=== PATIENT | female | born 1950 | race Caucasian/White ===

== ENCOUNTER 2017-04-28 15:50 | Inpatient (IN) | payer MEDICARE, MEDICAID ==
[2017-04-28] MEDS ORDERED: Sodium Chloride 0.9% 10 ML Syringe FLUSH PRN (16:10)
[2017-04-28] MEDS ORDERED: Sodium Chloride 0.9% 1,000 ML IV ONE (16:10)
--- NOTE | 2017-04-28 16:13 | EDM.PDOC ---
ED HPI GENERAL MEDICAL PROBLEM - General Chief Complaint: Neurological Problem Stated Complaint: [facility] Time Seen by Provider: 04/28/17 16:17 Source of Information: Reports: Patient History Limitations: Reports: No Limitations - History of Present Illness INITIAL COMMENTS - FREE TEXT/NARRATIVE: 67-year-old female presents via [facility] for evaluation and treatment of weakness, dizziness, nausea and headaches. Patient reports that her symptoms started around 9:30 this morning. Reports at that time she was just relaxing watching TV. She reports that the dizziness is present only with movement when. When she lays still she does not experience any dizziness. She also reports some left numbness and tingling into her arm. Patient denies any chest pain, shortness breath, syncope, fevers, chills or a cough. 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 This was resected in 2013. Patient smokes a pack of cigarettes a day. Lives at home in an apartment by herself. All over Pain Score (Numeric/FACES): 5 - Related Data Allergies Allergy/AdvReac Type Severity Reaction Status Date / Time No Known Allergies Allergy Verified 04/28/17 16:03 Home Meds: Home Meds . [No Known Home Meds] 04/28/17 [History] Past Medical History Oncologic (Cancer) History: Reports: Squamous Cell Carcinoma - Past Surgical History HEENT Surgical History: Reports: Other (See Below) Other HEENT Surgeries/Procedures: mouth surgery Musculoskeletal Surgical History: Reports: Other (See Below) Social & Family History - Family History Family Medical History: Noncontributory - Tobacco Use Smoking Status *Q: Current Every Day Smoker Years of Tobacco use: 50 Packs/Tins Daily: 1 Used Tobacco, but Quit: No Second Hand Smoke Exposure: Yes - Caffeine Use Caffeine Use: Reports: Coffee - Alcohol Use Days Per Week of Alcohol Use: 1 Number of Drinks Per Day: 1 Total Drinks Per Week: 1 - Recreational Drug Use Recreational Drug Use: No ED ROS GENERAL - Review of Systems Review Of Systems: See Below Constitutional: Reports: Weakness (generalized). Denies: Fever HEENT: Denies: Ear Pain Respiratory: Denies: Shortness of Breath Cardiovascular: Denies: Chest Pain GI/Abdominal: Reports: Nausea. Denies: Abdominal Pain, Vomiting Neurological: Reports: Confusion, Dizziness (with movement), Headache, Numbness (left arm), Weakness (generalized). Denies: Syncope, Trouble Speaking, Change in Speech ED EXAM, NEURO - Physical Exam Exam: See Below Exam Limited By: No Limitations General Appearance: Alert, WD/WN, No Apparent Distress Eye Exam: Bilateral Eye: EOMI, PERRL Ears: Normal External Exam, Normal Canal, Hearing Grossly Normal, Normal TMs Nose: Normal Inspection Throat/Mouth: No Airway Compromise, Other (mandibular ressection from oral caner ) Respiratory/Chest: No Respiratory Distress, Lungs Clear, Normal Breath Sounds Cardiovascular: Normal Peripheral Pulses, Regular Rate, Rhythm, No Murmur GI/Abdominal: Soft, Non-Tender Neurological: Alert, Normal Mood/Affect, Normal Dorsiflexion, CN II-XII Intact, Normal Plantar Flexion, Other (normal heel to zuniga testing, call out operator 5/5 bilaterall , dorsiflexion 5/5 bilaterally, plantar flexion 5/5 bilaterally ; no facial droop, no speech changes). No: Babinski Psychiatric: Normal Affect, Normal Mood Skin Exam: Warm, Dry, Normal Color EKG INTERPRETATION EKG Date: 04/28/17 Time: 16:00 Rhythm: NSR Rate (Beats/Min): 81 [place]: Normal P-Wave: Present QRS: Normal ST-T: Normal QT: Normal Course - Vital Signs Last Recorded V/S: Last Vital Signs Temp 36.7 C 04/29/17 10:32 Pulse 72 04/29/17 10:32 Resp 19 04/29/17 10:32 BP 170/70 H 04/29/17 10:32 Pulse Ox 92 L 04/29/17 10:32 Orthostatic Blood Pressure [ 196/90 Sitting] Orthostatic Blood Pressure [ 156/85 Supine] - Orders/Labs/Meds Orders: Active Orders 24 hr Category Date Time Status Orthostatic Vital Signs [RC] ASDIRECTED Care 04/28/17 16:11 Active Sodium Chloride 0.9% [Saline Flush] Med 04/28/17 16:10 Active 10 ml FLUSH ASDIRECTED PRN Peripheral IV Insertion Adult [OM.PC] Routine Oth 04/28/17 16:10 Ordered Medication Orders Acetaminophen (Tylenol) 650 mg PO Q4H PRN PRN Reason: Pain (Mild 1-3)/fever Hydrocodone Bitart/Acetaminophen ([place] 325-5 Mg) 1 tab PO Q4H PRN PRN Reason: Pain (moderate 4-6) Albuterol/Ipratropium (Duoneb 3.0-0.5 Mg/3 Ml) 3 ml NEB Q4H PRN PRN Reason: Shortness Of Breath/wheezing Last Admin: 04/29/17 08:35 Dose: 3 ml Bisacodyl (Dulcolax) 5 mg PO DAILY PRN PRN Reason: Constipation Docusate Sodium (Colace) 100 mg PO BID PRN PRN Reason: Constipation Hydralazine HCl (Apresoline) 20 mg IVPUSH Q4H PRN PRN Reason: Hypertension Last Admin: 04/29/17 10:49 Dose: 20 mg Promethazine HCl 12.5 mg/ (Sodium Chloride) 50.5 mls @ 100 mls/hr IV Q6H PRN PRN Reason: Nausea/Vomiting Lorazepam (Ativan) 0.5 mg IV Q6H PRN PRN Reason: Anxiety Magnesium Sulfate (Pharmacy To Dose - Magnesium Replacement) 1 dose .XX ASDIRECTED [facility] Meclizine HCl (Antivert) 25 mg PO Q6H PRN PRN Reason: Dizziness Metoprolol Tartrate (Lopressor) 5 mg IVPUSH Q4H PRN PRN Reason: Tachycardia Miscellaneous Information (Remove Patch) 1 ea TRDERM ONETIME ONE Stop: 05/01/17 21:01 Miscellaneous Information (Remove Patch) 0 ea TRDERM DAILY [facility] Morphine Sulfate (Morphine) 1 mg IVPUSH Q4H PRN PRN Reason: Other Stop: 04/29/17 23:18 Nicotine (Habitrol) 21 mg TRDERM DAILY [facility] Ondansetron HCl (Zofran) 4 mg IV Q6H PRN PRN Reason: Nausea/Vomiting Polyethylene Glycol (Miralax) 17 gm PO DAILY PRN PRN Reason: Constipation Potassium Chloride (Pharmacy To Dose - Potassium Replacement) 1 dose .XX ASDIRECTED [facility] Senna/Docusate Sodium (Senna Plus) 1 tab PO BID PRN PRN Reason: Constipation Sodium Chloride (Saline Flush) 10 ml FLUSH ASDIRECTED PRN PRN Reason: Keep Vein Open Last Admin: 04/28/17 16:34 Dose: 10 ml Temazepam (Restoril) 7.5 mg PO BEDTIME PRN PRN Reason: Sleep Labs: Laboratory Tests 04/28/17 04/28/17 04/28/17 Range/Units 15:55 15:55 15:55 WBC 4.91 (3.98-10.04) K/mm3 RBC 4.62 (3.98-5.22) M/mm3 Hgb 13.1 (11.2-15.7) gm/L Hct 41.0 (34.1-44.9) % MCV 88.7 (79.4-94.8) fl MCH 28.4 (25.6-32.2) pg MCHC 32.0 L (32.2-35.5) g/dl RDW Std Deviation 46.9 H (36.4-46.3) fL Plt Count 232 (182-369) K/mm3 MPV 10.2 (9.4-12.3) fl Neutrophils % (Manual) 66 H (40-60) % Band Neutrophils % 0 (0-10) % Lymphocytes % (Manual) 24 (20-40) % Atypical Lymphs % 1 % Monocytes % (Manual) 6 (2-10) % Eosinophils % (Manual) 1 (0.7-5.8) % Basophils % (Manual) 2 H (0.1-1.2) Platelet Estimate Adequate Plt Morphology Comment Normal Poikilocytosis 1+ slight Anisocytosis 1+ slight Microcytosis 1+ slight Macrocytosis 1+ slight Tear Drop Cells 1+ slight Ovalocytes 1+ slight RBC Morph Comment Abnormal PT 10.0 (8.0-13.0) SECONDS INR 0.92 APTT 29 (22-36) SECONDS Sodium 138 (136-145) mEq/L Potassium 4.0 (3.5-5.1) mEq/L Chloride 103 (98-107) mEq/L Carbon Dioxide 30 (21-32) mEq/L Anion Gap 9.0 (5-15) BUN 17 (7-18) mg/dL Creatinine 1.1 H (0.55-1.02) mg/dL Est Cr Clr Drug Dosing 38.48 mL/min Estimated GFR (MDRD) 50 (>60) mL/min BUN/Creatinine Ratio 15.5 (14-18) Glucose 106 (80-115) mg/dL Calcium 9.3 (8.5-10.1) mg/dL Magnesium 1.7 L (1.8-2.4) mg/dl Total Bilirubin 0.3 (0.2-1.0) mg/dL AST 19 (15-37) U/L ALT 16 (14-59) U/L Alkaline Phosphatase 82 (46-116) U/L Troponin I < 0.017 (0.00-0.056) ng/mL Total Protein 7.2 (6.4-8.2) g/dl Albumin 3.6 (3.4-5.0) g/dl Globulin 3.6 gm/dL Albumin/Globulin Ratio 1.0 (1-2) TSH 3rd Generation 3.329 (0.358-3.74) uIU/mL Urine Color (Yellow) Urine Appearance (Clear) Urine pH (5.0-8.0) Ur Specific [place] (1.005-1.030) Urine Protein (Negative) Urine Glucose (UA) (Negative) Urine Ketones (Negative) Urine Occult Blood (Negative) Urine Nitrite (Negative) Urine Bilirubin (Negative) Urine Urobilinogen (0.2-1.0) Ur Leukocyte Esterase (Negative) Urine RBC (0-5) /hpf Urine WBC (0-5) /hpf Ur Epithelial Cells (0-5) /hpf Urine Bacteria (FEW) /hpf Hyaline Casts (0-5) /lpf Urine Mucus (FEW) /hpf Urine Opiates Screen (NEGATIVE) Ur Buprenorphine Scrn (NEGATIVE) Ur Oxycodone Screen (NEGATIVE) Urine Methadone Screen (NEGATIVE) Ur Propoxyphene Screen (NEGATIVE) Ur Barbiturates Screen (NEGATIVE) Ur Tricyclics Screen (NEGATIVE) Ur Phencyclidine Scrn (NEGATIVE) Ur Amphetamine Screen (NEGATIVE) U Methamphetamines Scrn (NEGATIVE) U Benzodiazepines Scrn (NEGATIVE) U Cocaine Metab Screen (NEGATIVE) U Marijuana (THC) Screen (NEGATIVE) Ethyl Alcohol (0.00) gm% 04/28/17 04/28/17 04/28/17 Range/Units 15:55 18:30 18:30 WBC (3.98-10.04) K/mm3 RBC (3.98-5.22) M/mm3 Hgb (11.2-15.7) gm/L Hct (34.1-44.9) % MCV (79.4-94.8) fl MCH (25.6-32.2) pg MCHC (32.2-35.5) g/dl RDW Std Deviation (36.4-46.3) fL Plt Count (182-369) K/mm3 MPV (9.4-12.3) fl Neutrophils % (Manual) (40-60) % Band Neutrophils % (0-10) % Lymphocytes % (Manual) (20-40) % Atypical Lymphs % % Monocytes % (Manual) (2-10) % Eosinophils % (Manual) (0.7-5.8) % Basophils % (Manual) (0.1-1.2) Platelet Estimate Plt Morphology Comment Poikilocytosis Anisocytosis Microcytosis Macrocytosis Tear Drop Cells Ovalocytes RBC Morph Comment PT (8.0-13.0) SECONDS INR APTT (22-36) SECONDS Sodium (136-145) mEq/L Potassium (3.5-5.1) mEq/L Chloride (98-107) mEq/L Carbon Dioxide (21-32) mEq/L Anion Gap (5-15) BUN (7-18) mg/dL Creatinine (0.55-1.02) mg/dL Est Cr Clr Drug Dosing mL/min Estimated GFR (MDRD) (>60) mL/min BUN/Creatinine Ratio (14-18) Glucose (80-115) mg/dL Calcium (8.5-10.1) mg/dL Magnesium (1.8-2.4) mg/dl Total Bilirubin (0.2-1.0) mg/dL AST (15-37) U/L ALT (14-59) U/L Alkaline Phosphatase (46-116) U/L Troponin I (0.00-0.056) ng/mL Total Protein (6.4-8.2) g/dl Albumin (3.4-5.0) g/dl Globulin gm/dL Albumin/Globulin Ratio (1-2) TSH 3rd Generation (0.358-3.74) uIU/mL Urine Color Yellow (Yellow) Urine Appearance Clear (Clear) Urine pH 6.5 (5.0-8.0) Ur Specific [place] 1.020 (1.005-1.030) Urine Protein Negative (Negative) Urine Glucose (UA) Negative (Negative) Urine Ketones Negative (Negative) Urine Occult Blood Trace-lysed H (Negative) Urine Nitrite Negative (Negative) Urine Bilirubin Negative (Negative) Urine Urobilinogen 0.2 (0.2-1.0) Ur Leukocyte Esterase Negative (Negative) Urine RBC 0-5 (0-5) /hpf Urine WBC 0-5 (0-5) /hpf Ur Epithelial Cells 5-10 H (0-5) /hpf Urine Bacteria Moderate H (FEW) /hpf Hyaline Casts 0-5 (0-5) /lpf Urine Mucus Not seen (FEW) /hpf Urine Opiates Screen Negative (NEGATIVE) Ur Buprenorphine Scrn Negative (NEGATIVE) Ur Oxycodone Screen Negative (NEGATIVE) Urine Methadone Screen Negative (NEGATIVE) Ur Propoxyphene Screen Negative (NEGATIVE) Ur Barbiturates Screen Negative (NEGATIVE) Ur Tricyclics Screen Negative (NEGATIVE) Ur Phencyclidine Scrn Negative (NEGATIVE) Ur Amphetamine Screen Negative (NEGATIVE) U Methamphetamines Scrn Negative (NEGATIVE) U Benzodiazepines Scrn Negative (NEGATIVE) U Cocaine Metab Screen Negative (NEGATIVE) U Marijuana (THC) Screen Negative (NEGATIVE) Ethyl Alcohol 0.00 (0.00) gm% Meds: Medications Generic Name Dose Route Start Last Admin Trade Name Freq PRN Reason Stop Dose Admin Acetaminophen 650 mg 04/28/17 23:17 Tylenol PO Q4H PRN Pain (Mild 1-3)/fever Hydrocodone Bitart/Acetaminophen 1 tab 04/28/17 23:17 [place] 325-5 Mg PO Q4H PRN Pain (moderate 4-6) Albuterol/Ipratropium 3 ml 04/28/17 23:17 04/29/17 08:35 Duoneb 3.0-0.5 Mg/3 Ml NEB 3 ml Q4H PRN Administration Shortness Of Breath/wheezing Bisacodyl 5 mg 04/28/17 23:17 Dulcolax PO DAILY PRN Constipation Docusate Sodium 100 mg 04/28/17 23:17 Colace PO BID PRN Constipation Hydralazine HCl 20 mg 04/28/17 23:29 04/29/17 10:49 Apresoline IVPUSH 20 mg Q4H PRN Administration Hypertension Promethazine HCl 12.5 mg/ 50.5 mls @ 100 mls/hr 04/28/17 23:17 Sodium Chloride IV Q6H PRN Nausea/Vomiting Lorazepam 0.5 mg 04/28/17 23:17 Ativan IV Q6H PRN Anxiety Magnesium Sulfate 1 dose 04/28/17 23:30 Pharmacy To Dose - Magnesium Replacement .XX ASDIRECTED [facility] Meclizine HCl 25 mg 04/28/17 23:30 Antivert PO Q6H PRN Dizziness Metoprolol Tartrate 5 mg 04/28/17 23:29 Lopressor IVPUSH Q4H PRN Tachycardia Miscellaneous Information 1 ea 05/01/17 21:00 Remove Patch TRDERM 05/01/17 21:01 ONETIME ONE Miscellaneous Information 0 ea 04/30/17 09:00 Remove Patch TRDERM DAILY [facility] Morphine Sulfate 1 mg 04/28/17 23:17 Morphine IVPUSH 04/29/17 23:18 Q4H PRN Other Nicotine 21 mg 04/29/17 11:15 Habitrol TRDERM DAILY [facility] Ondansetron HCl 4 mg 04/28/17 23:17 Zofran IV Q6H PRN Nausea/Vomiting Polyethylene Glycol 17 gm 04/28/17 23:17 Miralax PO DAILY PRN Constipation Potassium Chloride 1 dose 04/28/17 23:30 Pharmacy To Dose - Potassium Replacement .XX ASDIRECTED [facility] Senna/Docusate Sodium 1 tab 04/28/17 23:17 Senna Plus PO BID PRN Constipation Sodium Chloride 10 ml 04/28/17 16:10 04/28/17 16:34 Saline Flush FLUSH 10 ml ASDIRECTED PRN Administration Keep Vein Open Temazepam 7.5 mg 04/28/17 23:17 Restoril PO BEDTIME PRN Sleep Discontinued Medications Generic Name Dose Route Start Last Admin Trade Name Freq PRN Reason Stop Dose Admin Clonidine HCl 0.1 mg 04/28/17 21:51 04/28/17 22:21 Catapres PO 04/28/17 21:52 0.1 mg ONETIME ONE Administration Diphenhydramine HCl 50 mg 04/28/17 22:08 04/29/17 00:10 Benadryl IVPUSH 04/28/17 22:09 Not Given ONETIME ONE Diphtheria/Tetanus/Acell Pertussis 0.5 ml 04/29/17 09:49 Adacel IM 04/29/17 09:50 .ONCE ONE Enalaprilat 1.25 mg 04/28/17 20:07 04/28/17 20:16 Vasotec Iv IVPUSH 04/28/17 20:08 1.25 mg ONETIME ONE Administration Sodium Chloride 1,000 mls @ 100 mls/hr 04/28/17 16:10 04/28/17 16:31 Normal Saline IV 04/29/17 02:09 100 mls/hr ONETIME ONE Administration Magnesium Sulfate 2 gm/ Premix 50 mls @ 25 mls/hr 04/28/17 23:29 04/29/17 00: 02 IV 04/29/17 01:28 25 mls/hr ONETIME ONE Administration Ketorolac Tromethamine 15 mg 04/28/17 18:06 04/28/17 18:21 Toradol IVPUSH 04/28/17 18:07 15 mg ONETIME ONE Administration Meclizine HCl 25 mg 04/28/17 18:06 04/28/17 18:24 Antivert PO 04/28/17 18:07 25 mg ONETIME ONE Administration Nicotine 21 mg 04/28/17 19:55 04/28/17 20:14 Habitrol TRDERM 04/28/17 19:56 21 mg ONETIME ONE Administration Ondansetron HCl 4 mg 04/28/17 18:06 04/28/17 18:17 Zofran IVPUSH 04/28/17 18:07 4 mg ONETIME ONE Administration Scopolamine 1.5 mg 04/28/17 21:00 04/28/17 22:21 Transderm-Scop TOP 04/28/17 21:01 1.5 mg ONETIME ONE Administration - Radiology Interpretation Free Text/Narrative:: CT of the head without contrast impression per Vrad: No evidence for acute transcortical infarct, acute hemorrhage or mass effect. chest xray shows no acute intrathroacic process. - Re-Assessments/Exams Free Text/Narrative Re-Assessment/Exam: 04/28/17 18:36 I reviewed the labs, EKG, chest x-ray and head CT results with the patient and her sister Chasity. At this point I feel her dizziness and complaints are likely vestibular in origin. The dizziness is worse with movement. Weakness is generalized. Will try some meclizine, Toradol and Zofran for her dizziness, headache and nausea. We will then reevaluate and see how she feels and if she is safe to go home. 04/28/17 20:00 Patient reports that her headache has resolved. The nausea has significantly improved. The dizziness has also improved. I feel that she could go home. Her sister is very concerned about her going home as she lives at home by herself. I had nursing staff walk with the patient's around the ER. She is able to do this with a walker and with their assistance. However, when she got back to the room her legs gave out due to weakness. The patient's blood pressure while in the ER has been in the 160s to 170s systolic, on the monitor. I see that it is increasing into the 180s and she's had several 200 systolic blood pressure. She is rather anxious about staying in requested outside to smoke. I will get her a nicotine patch. I asked that they perform a manual blood pressure and her systolic was 178. Case was discussed with Dr. Echols. Recommended Vasotec IV for the blood pressure. He does not feel this is a CVA and felt this was vestibular in origin. Patient agrees to stay in the hospital for the weakness and dizziness. Case discussed with Dr. Goodwin. He agrees to the admission. Chasity, sister, is available at [phone]. Departure - Departure Time of Disposition: 20:30 Disposition: Admitted As Inpatient 68 Condition: Poor Clinical Impression: Weakness, Dizziness - Discharge Information - My Orders Last 24 Hours: My Active Orders 04/28/17 16:10 Sodium Chloride 0.9% [Saline Flush] 10 ml FLUSH ASDIRECTED PRN Peripheral IV Insertion Adult [OM.PC] Routine 04/28/17 16:11 Orthostatic Vital Signs [RC] ASDIRECTED - Assessment/Plan Last 24 Hours: My Active Orders 04/28/17 16:10 Sodium Chloride 0.9% [Saline Flush] 10 ml FLUSH ASDIRECTED PRN Peripheral IV Insertion Adult [OM.PC] Routine 04/28/17 16:11 Orthostatic Vital Signs [RC] ASDIRECTED
[2017-04-28] MEDS ORDERED: Ketorolac 15 MG/ML SDV IVPUSH ONE (18:06)
[2017-04-28] MEDS ORDERED: Meclizine 12.5 MG Tab PO ONE (18:06)
[2017-04-28] MEDS ORDERED: Ondansetron 4 MG/2 ML SDV IVPUSH ONE (18:06)
[2017-04-28] MEDS ORDERED: Nicotine 21 MG/24 Hr Patch TRDERM ONE (19:55)
[2017-04-28] MEDS ORDERED: Enalaprilat 1.25 MG/ML SDV IVPUSH ONE (20:07)
[2017-04-28] MEDS ORDERED: Scopolamine 1.5 MG Transdermal Patch TOP ONE (21:00)
[2017-04-28] MEDS ORDERED: Pneumococcal Polyvalent-23 Vaccine 0.5 ML SDV IM ONE (21:06)
--- NOTE | 2017-04-28 21:31 | PCM.HP ---
H&P History of Present Illness - General Date of Service: 04/28/17 Admit Problem/Dx: Admission Diagnosis/Problem Admission Diagnosis/Problem Vertigo Source of Information: Patient, Old Records, Provider, RN Notes Reviewed History Limitations: Reports: No Limitations - History of Present Illness Initial Comments - Free Text/Narative: This is a 67 year old elderly white female who looks older than her stated age with no significant past medical history who comes to the emergency department for evaluation of multiple complaints: Weakness, dizziness, nausea and headache. Per patient all her symptoms started early this morning while she was at rest. She denies doing anything out of the ordinary. She denies using illicit drugs or abusing prescription drugs. She denies alcohol use. She describes her dizziness as false sense of equilibrium. She reports no sense of room spinning. Her dizziness is aggravated by abrupt movement and associated with some left numbness and tingling of her arm. She denies any other symptoms. 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 She is still an active smoker and smoked one pack a day. Her initial workup in the emergency department shows an unremarkable CBC. Her chemistry is remarkable for magnesium 1.7. Her UA is negative for UTI. Chest x-ray shows hyperinflated lungs. Head CT scan shows no acute intra- cranial abnormality. Patient is being admitted for medical management of disequilibrium. She is full code. . All over Pain Score (Numeric/FACES): 5 - Related Data Allergies/Adverse Reactions: Allergies Allergy/AdvReac Type Severity Reaction Status Date / Time No Known Allergies Allergy Verified 04/28/17 16:03 Home Medications: Home Meds . [No Known Home Meds] 04/28/17 [History] Past Medical History HEENT History: Reports: None Cardiovascular History: Reports: None Respiratory History: Reports: COPD Gastrointestinal History: Reports: None Genitourinary History: Reports: None Musculoskeletal History: Reports: None Neurological History: Reports: Vertigo Psychiatric History: Reports: None Endocrine/Metabolic History: Reports: None Hematologic History: Reports: Blood Transfusion(s) Immunologic History: Reports: None Oncologic (Cancer) History: Reports: Squamous Cell Carcinoma Dermatologic History: Reports: None - Infectious Disease History Infectious Disease History: Reports: None - Past Surgical History HEENT Surgical History: Reports: Other (See Below) Other HEENT Surgeries/Procedures: mouth surgery Respiratory Surgical History: Reports: None Endocrine Surgical History: Reports: None Neurological Surgical History: Reports: None Oncologic Surgical History: Reports: Other (See Below) Other Oncologic Surgeries/Procedures: mouth surgery Dermatological Surgical History: Reports: Plastic Surgical Reconstruction/Repair , Other (See Below) Social & Family History - Family History Family Medical History: Noncontributory - Tobacco Use Smoking Status *Q: Current Every Day Smoker Years of Tobacco use: 30 Packs/Tins Daily: 1 Used Tobacco, but Quit: No Second Hand Smoke Exposure: Yes - Caffeine Use Caffeine Use: Reports: Coffee - Alcohol Use Days Per Week of Alcohol Use: 1 Number of Drinks Per Day: 1 Total Drinks Per Week: 1 - Recreational Drug Use Recreational Drug Use: No H&P Review of Systems - Review of Systems: Review Of Systems: See Below General: Denies: Fever, Chills, Malaise, Weakness, Fatigue HEENT: Reports: No Symptoms Pulmonary: Denies: Shortness of Breath Cardiovascular: Reports: Lightheadedness. Denies: Chest Pain, Palpitations, Dyspnea on Exertion Gastrointestinal: Reports: Nausea. Denies: Abdominal Pain, Decreased Appetite, Vomiting Genitourinary: Reports: No Symptoms Musculoskeletal: Reports: No Symptoms Skin: Reports: Change in Color. Denies: Cyanosis, Jaundice Psychiatric: Denies: Confusion, Depression, Mood Lability, Anxiety, Suicidal Ideation Neurological: Denies: Confusion, Difficulty Walking, Weakness, Gait Disturbance Hematologic/Lymphatic: Reports: No Symptoms Immunologic: Reports: No Symptoms Exam - Exam Exam: See Below - Vital Signs Vital Signs: Last Vital Signs Temp 36.6 C 04/28/17 20:40 Pulse 80 04/28/17 20:40 Resp 14 04/28/17 20:40 BP 177/103 H 04/28/17 20:40 Pulse Ox 95 04/28/17 20:40 Weight: 50.712 kg - Exam Quality Assessment: No: Supplemental Oxygen General: Alert, Oriented, Cooperative. No: Mild Distress HEENT: Conjunctiva Clear, EACs Clear, Hearing Intact, Mucosa Moist & [place], Normal Nasal Septum, Posterior Pharynx Clear, Pupils Reactive, TMs Clear, Other (w/o dentition or artifical teeth). No: EOMI (unable to follow my finger going to her left: left sided neglect), Pupils Equal Neck: Supple, Other (Asymmetric neck and evidence of surgical resection; missing lower jaw ). No: Trachea Midline, Full Range of Motion, Lymphadenopathy Lungs: Normal Respiratory Effort, Decreased Breath Sounds Cardiovascular: Regular Rate, Regular Rhythm GI/Abdominal Exam: Normal Bowel Sounds, Soft, Non-Tender, No Organomegaly, No Distention, No Abnormal Bruit, No Mass (Female) Exam: Deferred Rectal (Female) Exam: Deferred Back Exam: Normal Inspection, Decreased Range of Motion Extremities: Normal Inspection, Normal Range of Motion, Non-Tender, No Pedal Edema, Normal Capillary Refill Peripheral Pulses: 2+: Posterior Tibial (L), Posterior Tibial (R), Dorsalis Pedis (L), Dorsalis Pedis (R) Skin: Warm, Dry, Intact Neuro Extensive - Mental Status: Oriented x3, Normal Cognition, Memory Intact Neuro Extensive - Motor, Sensory, Reflexes: CN II-XII Intact (limited but fairly intact), Abnormal Gait, Other (left sided neglect), Motor/Sensory Deficits (mild weakness on left arm). No: Receptive Aphasia, Expressive Aphasia , Facial palsy (L), Facial Palsy (R), Pronator Drift (R), Pronator Drift (L), Babinski, Tremor Psychiatric: Alert, Normal Mood. No: Normal Affect, Anxious, Suicidal Ideation , Homicidal Ideation, Hallucinations, Withdrawal Symptoms - Patient Data Result Diagrams: 04/29/17 06:30 04/29/17 06:30 EKG INTERPRETATION EKG Date: 04/28/17 Time: 16:00 Rhythm: NSR Rate (Beats/Min): 81 [place]: Normal P-Wave: Present QRS: Normal ST-T: Normal QT: Normal *Q Meaningful Use (ADM) - VTE *Q VTE Criteria *Q: - Stroke *Q Stroke Criteria *Q: - AMI *Q AMI Criteria *Q: Problem List Initiated/Reviewed/Updated: Yes Orders Last 24hrs: Active Orders 24 hr Category Date Time Status Admission Status [Patient Status] [ADT] Routine ADT 04/28/17 20:30 Active Resuscitation Status Routine Resus Stat 04/28/17 21:18 Ordered Medication Orders Sodium Chloride (Normal Saline) 1,000 mls @ 100 mls/hr IV ONETIME ONE Stop: 04/29/17 02:09 Last Admin: 04/28/17 16:31 Dose: 100 mls/hr Sodium Chloride (Saline Flush) 10 ml FLUSH ASDIRECTED PRN PRN Reason: Keep Vein Open Last Admin: 04/28/17 16:34 Dose: 10 ml Assessment/Plan Comment:: Assessment/Plan: Acute: Dizziness - No associated nasal/throat or hearing complaints - More of dys-equilibrium - No room spinning - Dizziness resolved as soon as she got to the floor - No slurred speech or facial droop - Head CT scan: Nothing acute is identified - R/o Stroke: No MRI/MRA services at night - She is still nauseous - She smokes but does not drink ETOH - She denies illicit drug use or Rx drug abuse - Scopolamine patch x1 and Benadryl 50 mg IVP x1 - PRN Meclizine Weakness, Nausea and CASTILLO - Possible Stroke Like Symptoms-symptoms started this morning - Nausea and CASTILLO resolved when she got to the floor - Head CT scan: nothing acute is identified - No vomiting or CASTILLO - Brain MRI and Head/Neck MRA in AM Nicotine Abuse/Dependence - Smokes 1 ppd - Nicotine Patch daily Malignant HTN - Stress vs Nicotine Withdrawal - She carries no hx/o HTN - She had SBPs in the 200s per ED notes - She received initial treatment in ED - PRN anti-hypertensive meds Malnutrition/Poor Nutritional State - Emaciated and not well kept - Poor intake due to anatomic and structural changes after her oral/neck surgery - She is w/o dentition or artificial teeth - Dietary consult to improve nutritional status Hypomagnesemia - Mg 1.7 - Will replete - Pharmacy to replete and monitor subsequent levels Chronic: Probable COPD/Emphysema- No formal diagnosis Plan: Admit to Med-Surg Dizziness: a very weak admission since all her work up were negative Resume Home Meds if she is on any UDS Further work up in AM and monitor for worsening symptoms PT/OT consult for deconditioning PFT inpatient for formal diagnosis of COPD SW consult for to assess home and social aspect of her living condition CM for d/c planning Additional orders as above Code status: 1
[2017-04-28] MEDS ORDERED: cloNIDine 0.1 MG Tab PO ONE (21:51)
[2017-04-28] MEDS ORDERED: diphenhydrAMINE 50 MG/ML SDV IVPUSH ONE (22:08)
[2017-04-28] MEDS ORDERED: Promethazine 12.5 MG in Sodium Chloride 0.9% 50 ML IV PRN (23:17)
[2017-04-28] MEDS ORDERED: Docusate Sodium 100 MG Cap PO PRN (23:17)
[2017-04-28] MEDS ORDERED: Albuterol/Ipratropium 3.0-0.5 MG/3 ML Neb Soln NEB PRN (23:17)
[2017-04-28] MEDS ORDERED: Acetaminophen 325 MG Tab PO PRN (23:17)
[2017-04-28] MEDS ORDERED: Acetaminophen/HYDROcodone 325-5 MG Tab PO PRN (23:17)
[2017-04-28] MEDS ORDERED: Polyethylene Glycol 3350 Powder 17 GM Packet PO PRN (23:17)
[2017-04-28] MEDS ORDERED: Bisacodyl 5 MG Tab PO PRN (23:17)
[2017-04-28] MEDS ORDERED: Morphine 2 MG/ML Syringe IVPUSH PRN (23:17)
[2017-04-28] MEDS ORDERED: Temazepam 7.5 MG Cap PO PRN (23:17)
[2017-04-28] MEDS ORDERED: Magnesium Sulfate/Water 2 GM in Premix Bag 1 BAG IV ONE (23:29)
[2017-04-29] MEDS ORDERED: Diphtheria,Pertussis(Acell),Tetanus Vaccine 0.5 ML SDV IM ONE (09:49)
--- NOTE | 2017-04-29 09:54 | PCM.PN ---
<Constantino Locke - Last Filed: 04/29/17 17:12> - General Info Date of Service: 04/29/17 Admission Dx/Problem (Free Text): Admission Diagnosis/Problem Admission Diagnosis/Problem Vertigo Functional Status: Reports: New Symptoms (worsening weakness, left sided neglect ) Pain Score: 4 - Review of Systems General: Reports: No Symptoms. Denies: Fever, Weakness, Fatigue, Malaise HEENT: Reports: No Symptoms. Denies: Eye Pain, Headaches, Sore Throat Pulmonary: Reports: No Symptoms. Denies: Shortness of Breath, Cough Cardiovascular: Reports: No Symptoms. Denies: Chest Pain, Palpitations Gastrointestinal: Reports: Abdominal Pain. Denies: Constipation, Decreased Appetite, Diarrhea, Nausea, Vomiting Genitourinary: Reports: No Symptoms. Denies: Dysuria, Frequency, Burning, Pain Musculoskeletal: Reports: No Symptoms Skin: Reports: No Symptoms Neurological: Reports: No Symptoms. Denies: Confusion, Dizziness, Headache, Numbness Psychiatric: Reports: No Symptoms - Patient Data Vitals - Most Recent: Last Vital Signs Temp 97.5 F 04/29/17 08:14 Pulse 83 04/29/17 08:14 Resp 14 04/29/17 08:14 BP 152/81 H 04/29/17 08:14 Pulse Ox 94 L 04/29/17 08:14 Weight - Most Recent: 50.712 kg I&O - Last 24 Hours: Intake & Output 04/28/17 04/29/17 04/29/17 22:59 06:59 14:59 Intake Total 1470 Output Total 250 Balance 1220 Lab Results Last 24 Hours: Laboratory Results - last 24 hr 04/29/17 04/29/17 Range/Units 06:30 06:30 WBC 4.64 (3.98-10.04) K/mm3 RBC 4.21 (3.98-5.22) M/mm3 Hgb 12.2 (11.2-15.7) gm/L Hct 37.5 (34.1-44.9) % MCV 89.1 (79.4-94.8) fl MCH 29.0 (25.6-32.2) pg MCHC 32.5 (32.2-35.5) g/dl RDW Std Deviation 47.1 H (36.4-46.3) fL Plt Count 221 (182-369) K/mm3 MPV 10.5 (9.4-12.3) fl Neut % (Auto) 69.7 (34.0-71.1) % Lymph % (Auto) 19.4 (19.3-51.7) % Stephenson % (Auto) 8.4 (4.7-12.5) % Eos % (Auto) 1.7 (0.7-5.8) Baso % (Auto) 0.2 (0.1-1.2) % Neut # (Auto) 3.23 (1.56-6.13) K/mm3 Lymph # (Auto) 0.90 L (1.18-3.74) K/mm3 Stephenson # (Auto) 0.39 H (0.24-0.36) K/mm3 Eos # (Auto) 0.08 (0.04-0.36) K/mm3 Baso # (Auto) 0.01 (0.01-0.08) K/mm3 Sodium 139 (136-145) mEq/L Potassium 3.8 (3.5-5.1) mEq/L Chloride 104 (98-107) mEq/L Carbon Dioxide 26 (21-32) mEq/L Anion Gap 12.8 (5-15) BUN 16 (7-18) mg/dL Creatinine 1.0 (0.55-1.02) mg/dL Est Cr Clr Drug Dosing 42.32 mL/min Estimated GFR (MDRD) 56 (>60) mL/min BUN/Creatinine Ratio 16.0 (14-18) Glucose 92 (80-115) mg/dL Calcium 9.1 (8.5-10.1) mg/dL Magnesium 2.5 H (1.8-2.4) mg/dl Med Orders - Current: Current Medications Acetaminophen (Tylenol) 650 mg PO Q4H PRN PRN Reason: Pain (Mild 1-3)/fever Hydrocodone Bitart/Acetaminophen ([place] 325-5 Mg) 1 tab PO Q4H PRN PRN Reason: Pain (moderate 4-6) Albuterol/Ipratropium (Duoneb 3.0-0.5 Mg/3 Ml) 3 ml NEB Q4H PRN PRN Reason: Shortness Of Breath/wheezing Last Admin: 04/29/17 08:35 Dose: 3 ml Bisacodyl (Dulcolax) 5 mg PO DAILY PRN PRN Reason: Constipation Diphtheria/Tetanus/Acell Pertussis (Adacel) 0.5 ml IM .ONCE ONE Stop: 04/29/17 09:50 Docusate Sodium (Colace) 100 mg PO BID PRN PRN Reason: Constipation Hydralazine HCl (Apresoline) 20 mg IVPUSH Q4H PRN PRN Reason: Hypertension Promethazine HCl 12.5 mg/ (Sodium Chloride) 50.5 mls @ 100 mls/hr IV Q6H PRN PRN Reason: Nausea/Vomiting Lorazepam (Ativan) 0.5 mg IV Q6H PRN PRN Reason: Anxiety Magnesium Sulfate (Pharmacy To Dose - Magnesium Replacement) 1 dose .XX ASDIRECTED [facility] Meclizine HCl (Antivert) 25 mg PO Q6H PRN PRN Reason: Dizziness Metoprolol Tartrate (Lopressor) 5 mg IVPUSH Q4H PRN PRN Reason: Tachycardia Miscellaneous Information (Remove Patch) 1 ea TRDERM ONETIME ONE Stop: 05/01/17 21:01 Morphine Sulfate (Morphine) 1 mg IVPUSH Q4H PRN PRN Reason: Other Stop: 04/29/17 23:18 Ondansetron HCl (Zofran) 4 mg IV Q6H PRN PRN Reason: Nausea/Vomiting Polyethylene Glycol (Miralax) 17 gm PO DAILY PRN PRN Reason: Constipation Potassium Chloride (Pharmacy To Dose - Potassium Replacement) 1 dose .XX ASDIRECTED [facility] Senna/Docusate Sodium (Senna Plus) 1 tab PO BID PRN PRN Reason: Constipation Sodium Chloride (Saline Flush) 10 ml FLUSH ASDIRECTED PRN PRN Reason: Keep Vein Open Last Admin: 04/28/17 16:34 Dose: 10 ml Temazepam (Restoril) 7.5 mg PO BEDTIME PRN PRN Reason: Sleep Discontinued Medications Clonidine HCl (Catapres) 0.1 mg PO ONETIME ONE Stop: 04/28/17 21:52 Last Admin: 04/28/17 22:21 Dose: 0.1 mg Diphenhydramine HCl (Benadryl) 50 mg IVPUSH ONETIME ONE Stop: 04/28/17 22:09 Last Admin: 04/29/17 00:10 Dose: Not Given Enalaprilat (Vasotec Iv) 1.25 mg IVPUSH ONETIME ONE Stop: 04/28/17 20:08 Last Admin: 04/28/17 20:16 Dose: 1.25 mg Sodium Chloride (Normal Saline) 1,000 mls @ 100 mls/hr IV ONETIME ONE Stop: 04/29/17 02:09 Last Admin: 04/28/17 16:31 Dose: 100 mls/hr Magnesium Sulfate 2 gm/ Premix 50 mls @ 25 mls/hr IV ONETIME ONE Stop: 04/29/17 01:28 Last Admin: 04/29/17 00:02 Dose: 25 mls/hr Ketorolac Tromethamine (Toradol) 15 mg IVPUSH ONETIME ONE Stop: 04/28/17 18:07 Last Admin: 04/28/17 18:21 Dose: 15 mg Meclizine HCl (Antivert) 25 mg PO ONETIME ONE Stop: 04/28/17 18:07 Last Admin: 04/28/17 18:24 Dose: 25 mg Nicotine (Habitrol) 21 mg TRDERM ONETIME ONE Stop: 04/28/17 19:56 Last Admin: 04/28/17 20:14 Dose: 21 mg Ondansetron HCl (Zofran) 4 mg IVPUSH ONETIME ONE Stop: 04/28/17 18:07 Last Admin: 04/28/17 18:17 Dose: 4 mg Pneumococcal Polyvalent Vaccine (Pneumovax 23) 0.5 ml IM .ONCE ONE Stop: 04/28/17 21:07 Scopolamine (Transderm-Scop) 1.5 mg TOP ONETIME ONE Stop: 04/28/17 21:01 Last Admin: 04/28/17 22:21 Dose: 1.5 mg - Exam Quality Assessment: DVT Prophylaxis General: Alert, Oriented, Cooperative HEENT: Pupils Equal, Pupils Reactive, Mucous Membr. Moist/[place]. No: EOMI Neck: Supple, Trachea Midline, No JVD Lungs: Clear to Auscultation, Normal Respiratory Effort Cardiovascular: Regular Rate, Regular Rhythm, No Murmurs GI/Abdominal Exam: Normal Bowel Sounds, Soft, No Organomegaly, No Distention, No Abnormal Bruit, No Mass, Pelvis Stable, Tender (lower quadrants) (Female) Exam: Deferred Back Exam: Normal Inspection, Decreased Range of Motion Extremities: Normal Inspection, Normal Range of Motion, Non-Tender, No Pedal Edema, Normal Capillary Refill Peripheral Pulses: 1+: Posterior Tibial (L), Posterior Tibial (R), 2+: Radial (L ), Radial (R), Dorsalis Pedis (L), Dorsalis Pedis (R) Skin: Warm, Dry, Intact Neurological: Normal Speech, Sensation Intact, Other (demonstarted left sided weakness. ). No: Strength Equal Bilateral Psy/Mental Status: Alert, Normal Affect, Normal Mood Physical Findings Comments:: Nursing reports patient has had occasional spastic activity of the lower limbs. This is a new finding from admission. Prior to my visit they note that patient now apparent spastic activity to whole body. This was noted as I examine the patient and she is noticing it as well. She reports she is unable to control it. On examining her eyes I attempted nose to finger movements with her. In doing this she was attempting to touch my finger proximally 6 inches below with actual location. She also was touching below her chin for attempting to touch her nose. She denies any visual disturbances or double vision. - Problem List & Annotations (1) Stroke SNOMED Code(s): 020404029 Code(s): I63.9 - CEREBRAL INFARCTION, UNSPECIFIED Status: Acute Priority : High Current Visit: Yes QualifierTitle: CVA mechanism: unspecified Qualified Code(s): I63.9 - Cerebral infarction, unspecified (2) Pavel-neglect of left side SNOMED Code(s): 235651956 Code(s): R41.4 - NEUROLOGIC NEGLECT SYNDROME Status: Acute Priority: High Current Visit: Yes (3) Weakness SNOMED Code(s): 29110495 Code(s): R53.1 - WEAKNESS Status: Acute Priority: High Current Visit: Yes (4) Abdominal pain SNOMED Code(s): 50925777 Code(s): R10.9 - UNSPECIFIED ABDOMINAL PAIN Status: Acute Priority: Medium Current Visit: No - Problem List Review Problem List Initiated/Reviewed/Updated: Yes - Assessment Assessment:: CT scan from ER was reviewed and found to show nothing acute. While in to see patient it is noted that she has fairly significant left-sided weakness. She is able to move all extremities and responds appropriately to commands. However, when sitting up she does slump towards her left side. Equal motor and generator brush cutter strength noted. It is somewhat difficult to examine for facial droop as patient has had her mandible resected. PT/OT had also noted difficulty with the patient utilizing her left side when walking. 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 Because of this I ordered an MRI/MRA of the brain and neck. Unfortunately, the patient was only scheduled to have her MRI at 1500. MRI was contacted and after some debate they were agreeable to take the patient back for a stat MRI. Unfortunately the patient did not tolerate the MRI well. She continues to move around even after attempts at sedation. The hyperbaric technician did note an area of concern even with the poor diagnostic quality images. I contacted neurosurgery in [place], as we have had some success in the past with them accepting patients for clot removal. Dr. Woods was paged. MRI and CT from yesterday were passed through to him. As suspected, patient was outside of treatment window. He reported that there is nothing that they would do for her acutely in [place] as she is not a surgical candidate, nor is she a candidate for TPA. He did offer that the patient could be sent to them or be admitted to neurology closer to [place]. He also stated that the patient could likely remain in our hospital for monitoring and ultimately rehabilitation. Stat read on the MRI by Dr. Saenz reports "Findings compatible fairly acute but irreversible infarct with the occipital lobe extending into the insular cortex. This is an area of previous infarct and findings felt compatible with extension of the area of the old infarct." Other scenescent changes were also noted. I contacted the sister of the patient. She is unable to come to the hospital until after 1700. I discussed findings and prognosis and ultimately plan of care with her as the patient is still recovering from sedation and not responding. She seemed in agreement to patient staying here locally. As noted the patient is still sedated. Results, prognosis, and another evaluation will occur when she becomes more alert. - Plan Plan:: Assessment/Plan: Acute: Stroke -Neglect on left side -Weakness -CT scan in ED was negative -MRI confirms infarct within occipital lobe -Will make NPO pending swallow study Dizziness - No associated nasal/throat or hearing complaints - More of dys-equilibrium - No room spinning - Has resolved as soon as she got to the floor - She is still nauseous - She smokes but does not drink ETOH - She denies illicit drug use or Rx drug abuse - Scopolamine patch x1 and Benadryl 50 mg IVP x1 - PRN Meclizine - I felt this is more related to poor nutritional status and hydration Nicotine Abuse/Dependence - Smokes 1 ppd - Nicotine Patch daily HTN - Stress vs Nicotine Withdrawal - She carries no hx/o HTN - PRN anti-hypertensive meds Malnutrition/Poor Nutritional State - Emaciated and not well kept - Poor intake due to anatomic and structural changes after her oral/neck surgery - She is w/o dentition or artificial teeth - Dietary consult to improve nutritional status Chronic: COPD - New diagnosis -Confirmed by PFT -Will continue to monitor/treat Resolved: Hypomagnesemia - Mg 1.7 ---> 2.5 - Will replete - Pharmacy to replete and monitor subsequent levels Plan: Admit to Med-Surg Resume Home Meds if she is on any UDS PT/OT consult for deconditioning SW consult for to assess home and social aspect of her living condition CM for d/c planning Additional orders as above Code status: 1 <Elsie Goodwin T - Last Filed: 04/29/17 19:15> - Patient Data Vitals - Most Recent: Last Vital Signs Temp 36.0 C 04/29/17 12:50 Pulse 69 04/29/17 12:50 Resp 12 04/29/17 12:50 BP 175/79 H 04/29/17 12:50 Pulse Ox 95 04/29/17 12:50 I&O - Last 24 Hours: Intake & Output 04/28/17 04/29/17 04/29/17 22:59 06:59 14:59 Intake Total 1470 0 Output Total 250 Balance 1220 0 Lab Results Last 24 Hours: Laboratory Results - last 24 hr 04/29/17 04/29/17 04/29/17 Range/Units 06:30 06:30 06:30 WBC 4.64 (3.98-10.04) K/mm3 RBC 4.21 (3.98-5.22) M/mm3 Hgb 12.2 (11.2-15.7) gm/L Hct 37.5 (34.1-44.9) % MCV 89.1 (79.4-94.8) fl MCH 29.0 (25.6-32.2) pg MCHC 32.5 (32.2-35.5) g/dl RDW Std Deviation 47.1 H (36.4-46.3) fL Plt Count 221 (182-369) K/mm3 MPV 10.5 (9.4-12.3) fl Neut % (Auto) 69.7 (34.0-71.1) % Lymph % (Auto) 19.4 (19.3-51.7) % Stephenson % (Auto) 8.4 (4.7-12.5) % Eos % (Auto) 1.7 (0.7-5.8) Baso % (Auto) 0.2 (0.1-1.2) % Neut # (Auto) 3.23 (1.56-6.13) K/mm3 Lymph # (Auto) 0.90 L (1.18-3.74) K/mm3 Stephenson # (Auto) 0.39 H (0.24-0.36) K/mm3 Eos # (Auto) 0.08 (0.04-0.36) K/mm3 Baso # (Auto) 0.01 (0.01-0.08) K/mm3 PT 10.2 (8.0-13.0) SECONDS INR 0.94 Sodium 139 (136-145) mEq/L Potassium 3.8 (3.5-5.1) mEq/L Chloride 104 (98-107) mEq/L Carbon Dioxide 26 (21-32) mEq/L Anion Gap 12.8 (5-15) BUN 16 (7-18) mg/dL Creatinine 1.0 (0.55-1.02) mg/dL Est Cr Clr Drug Dosing 42.32 mL/min Estimated GFR (MDRD) 56 (>60) mL/min BUN/Creatinine Ratio 16.0 (14-18) Glucose 92 (80-115) mg/dL Calcium 9.1 (8.5-10.1) mg/dL Magnesium 2.5 H (1.8-2.4) mg/dl Triglycerides (<150) mg/dL Cholesterol (<200) mg/dL LDL Cholesterol Direct (<100) mg/dL HDL Cholesterol (40-59) mg/dL 09/14/17 Range/Units 06:30 WBC (3.98-10.04) K/mm3 RBC (3.98-5.22) M/mm3 Hgb (11.2-15.7) gm/L Hct (34.1-44.9) % MCV (79.4-94.8) fl MCH (25.6-32.2) pg MCHC (32.2-35.5) g/dl RDW Std Deviation (36.4-46.3) fL Plt Count (182-369) K/mm3 MPV (9.4-12.3) fl Neut % (Auto) (34.0-71.1) % Lymph % (Auto) (19.3-51.7) % Stephenson % (Auto) (4.7-12.5) % Eos % (Auto) (0.7-5.8) Baso % (Auto) (0.1-1.2) % Neut # (Auto) (1.56-6.13) K/mm3 Lymph # (Auto) (1.18-3.74) K/mm3 Stephenson # (Auto) (0.24-0.36) K/mm3 Eos # (Auto) (0.04-0.36) K/mm3 Baso # (Auto) (0.01-0.08) K/mm3 PT (8.0-13.0) SECONDS INR Sodium (136-145) mEq/L Potassium (3.5-5.1) mEq/L Chloride (98-107) mEq/L Carbon Dioxide (21-32) mEq/L Anion Gap (5-15) BUN (7-18) mg/dL Creatinine (0.55-1.02) mg/dL Est Cr Clr Drug Dosing mL/min Estimated GFR (MDRD) (>60) mL/min BUN/Creatinine Ratio (14-18) Glucose (80-115) mg/dL Calcium (8.5-10.1) mg/dL Magnesium (1.8-2.4) mg/dl Triglycerides 90 (<150) mg/dL Cholesterol 245 H (<200) mg/dL LDL Cholesterol Direct 159 H* (<100) mg/dL HDL Cholesterol 68.0 H (40-59) mg/dL Med Orders - Current: Current Medications Acetaminophen (Tylenol) 650 mg PO Q4H PRN PRN Reason: Pain (Mild 1-3)/fever Hydrocodone Bitart/Acetaminophen ([place] 325-5 Mg) 1 tab PO Q4H PRN PRN Reason: Pain (moderate 4-6) Albuterol/Ipratropium (Duoneb 3.0-0.5 Mg/3 Ml) 3 ml NEB Q4H PRN PRN Reason: Shortness Of Breath/wheezing Last Admin: 04/29/17 08:35 Dose: 3 ml Aspirin (Ecotrin) 325 mg PO ONETIME ONE Stop: 04/29/17 13:44 Bisacodyl (Dulcolax) 5 mg PO DAILY PRN PRN Reason: Constipation Docusate Sodium (Colace) 100 mg PO BID PRN PRN Reason: Constipation Hydralazine HCl (Apresoline) 20 mg IVPUSH Q4H PRN PRN Reason: Hypertension Last Admin: 04/29/17 10:49 Dose: 20 mg Promethazine HCl 12.5 mg/ (Sodium Chloride) 50.5 mls @ 100 mls/hr IV Q6H PRN PRN Reason: Nausea/Vomiting Lorazepam (Ativan) 0.5 mg IV Q6H PRN PRN Reason: Anxiety Last Admin: 04/29/17 12:50 Dose: 0.5 mg Magnesium Sulfate (Pharmacy To Dose - Magnesium Replacement) 1 dose .XX ASDIRECTED [facility] Meclizine HCl (Antivert) 25 mg PO Q6H PRN PRN Reason: Dizziness Metoprolol Tartrate (Lopressor) 5 mg IVPUSH Q4H PRN PRN Reason: Tachycardia Miscellaneous Information (Remove Patch) 1 ea TRDERM ONETIME ONE Stop: 05/01/17 21:01 Miscellaneous Information (Remove Patch) 0 ea TRDERM DAILY [facility] Morphine Sulfate (Morphine) 1 mg IVPUSH Q4H PRN PRN Reason: Other Stop: 04/29/17 23:18 Nicotine (Habitrol) 21 mg TRDERM DAILY [facility] Last Admin: 04/29/17 11:44 Dose: 21 mg Ondansetron HCl (Zofran) 4 mg IV Q6H PRN PRN Reason: Nausea/Vomiting Polyethylene Glycol (Miralax) 17 gm PO DAILY PRN PRN Reason: Constipation Potassium Chloride (Pharmacy To Dose - Potassium Replacement) 1 dose .XX ASDIRECTED [facility] Senna/Docusate Sodium (Senna Plus) 1 tab PO BID PRN PRN Reason: Constipation Sodium Chloride (Saline Flush) 10 ml FLUSH ASDIRECTED PRN PRN Reason: Keep Vein Open Last Admin: 04/28/17 16:34 Dose: 10 ml Temazepam (Restoril) 7.5 mg PO BEDTIME PRN PRN Reason: Sleep Discontinued Medications Clonidine HCl (Catapres) 0.1 mg PO ONETIME ONE Stop: 04/28/17 21:52 Last Admin: 04/28/17 22:21 Dose: 0.1 mg Diphenhydramine HCl (Benadryl) 50 mg IVPUSH ONETIME ONE Stop: 04/28/17 22:09 Last Admin: 04/29/17 00:10 Dose: Not Given Diphenhydramine HCl (Benadryl) 50 mg IVPUSH ONETIME STA Stop: 04/29/17 13:44 Diphtheria/Tetanus/Acell Pertussis (Adacel) 0.5 ml IM .ONCE ONE Stop: 04/29/17 09:50 Enalaprilat (Vasotec Iv) 1.25 mg IVPUSH ONETIME ONE Stop: 04/28/17 20:08 Last Admin: 04/28/17 20:16 Dose: 1.25 mg Sodium Chloride (Normal Saline) 1,000 mls @ 100 mls/hr IV ONETIME ONE Stop: 04/29/17 02:09 Last Admin: 04/28/17 16:31 Dose: 100 mls/hr Magnesium Sulfate 2 gm/ Premix 50 mls @ 25 mls/hr IV ONETIME ONE Stop: 04/29/17 01:28 Last Admin: 04/29/17 00:02 Dose: 25 mls/hr Ketorolac Tromethamine (Toradol) 15 mg IVPUSH ONETIME ONE Stop: 04/28/17 18:07 Last Admin: 04/28/17 18:21 Dose: 15 mg Lorazepam (Ativan) 1.5 mg IVPUSH ONETIME ONE Stop: 04/29/17 13:25 Meclizine HCl (Antivert) 25 mg PO ONETIME ONE Stop: 04/28/17 18:07 Last Admin: 04/28/17 18:24 Dose: 25 mg Nicotine (Habitrol) 21 mg TRDERM ONETIME ONE Stop: 04/28/17 19:56 Last Admin: 04/28/17 20:14 Dose: 21 mg Ondansetron HCl (Zofran) 4 mg IVPUSH ONETIME ONE Stop: 04/28/17 18:07 Last Admin: 04/28/17 18:17 Dose: 4 mg Scopolamine (Transderm-Scop) 1.5 mg TOP ONETIME ONE Stop: 04/28/17 21:01 Last Admin: 04/28/17 22:21 Dose: 1.5 mg - Problem List Review Problem List Initiated/Reviewed/Updated: Yes - My Orders Last 24 Hours: My Active Orders 04/28/17 21:18 Resuscitation Status Routine 04/28/17 23:17 Oxygen Therapy [RC] PRN Up With Assistance [RC] ASDIRECTED Up ad Mimi [RC] ASDIRECTED VTE/DVT Education [RC] Vital Signs [RC] Q4HR Acetaminophen [Tylenol] 650 mg PO Q4H PRN Acetaminophen/HYDROcodone [[place] 325-5 MG] 1 tab PO Q4H PRN Albuterol/Ipratropium [DuoNeb 3.0-0.5 MG/3 ML] 3 ml NEB Q4H PRN Bisacodyl [Dulcolax] 5 mg PO DAILY PRN Docusate Sodium [Colace] 100 mg PO BID PRN Docusate Sodium/Sennosides [Senna Plus] 1 tab PO BID PRN LORazepam [Ativan] 0.5 mg IV Q6H PRN Morphine 1 mg IVPUSH Q4H PRN Ondansetron [Zofran] 4 mg IV Q6H PRN Polyethylene Glycol 3350 [MiraLAX] 17 gm PO DAILY PRN Promethazine [Phenergan] 12.5 mg Sodium Chloride 0.9% [Normal Saline] 50 ml IV Q6H Temazepam [Restoril] 7.5 mg PO BEDTIME PRN 04/28/17 23:18 Antiembolic Devices [RC] QSHIFT Intake and Output [RC] 04,16 Pulse Oximetry [RC] CONTINUOUS Sequential Compression Device [OM.PC] Per Unit Routine 04/28/17 23:19 RT Aerosol Therapy [RC] ASDIRECTED 04/28/17 23:20 Consult to Case Management [CONS] Routine Consult to Genetic Coordinator [CONS] Routine Consult to Cream Tester [CONS] Routine Consult to Spiritual Care [CONS] Routine OT Evaluation and Treatment [CONS] Routine PT Evaluation and Treatment [CONS] Routine Respiratory Care Assess and Treatment [CONS] Routine 04/28/17 23:29 Metoprolol Tartrate [Lopressor] 5 mg IVPUSH Q4H PRN hydrALAZINE [Apresoline] 20 mg IVPUSH Q4H PRN 04/28/17 23:30 Magnesium Rep Pharmacy to Dose [Pharmacy to Dose - Magnesium Replacement] 1 dose .XX ASDIRECTED Meclizine [Antivert] 25 mg PO Q6H PRN Potassium Rep Pharmacy to Dose [Pharmacy to Dose - Potassium Replacement] 1 dose .XX ASDIRECTED 04/29/17 09:49 Vaccines to be Administered [RC] PER UNIT ROUTINE 04/29/17 11:15 Nicotine [Habitrol] 21 mg TRDERM DAILY 04/29/17 13:43 Aspirin [Ecotrin] 325 mg PO ONETIME ONE 04/29/17 Breakfast Regular Diet [DIET] 04/30/17 05:11 BASIC METABOLIC PANEL,BMP [CHEM] AM MAGNESIUM [CHEM] AM 04/30/17 09:00 Remove Patch 0 ea TRDERM DAILY 05/01/17 05:11 BASIC METABOLIC PANEL,BMP [CHEM] AM MAGNESIUM [CHEM] AM 05/01/17 21:00 Remove Patch 1 ea TRDERM ONETIME ONE 05/02/17 05:11 MAGNESIUM [CHEM] AM
--- NOTE | 2017-04-29 10:33 | CT ---
Head CT Technique: Multiple axial sections through the brain were obtained. Intravenous contrast was not utilized. Comparison: No prior intracranial imaging is available. Findings: Ventricles along with basal cisterns and sulci over the convexities are mildly prominent. Old infarct is noted within the medial right posterior parietal region. Diminished density is noted within the periventricular and subcortical white matter compatible with small vessel ischemic demyelination change. Old lacunar infarcts are noted within the both thalami and within other portions of the basal ganglia. No other abnormal parenchymal densities are seen. Slightly prominent cisterna magna is seen which is normal variant. No evidence of intracranial hemorrhage. No midline shift or mass effect is seen. Atherosclerotic calcification is seen within the vertebral vessels and within the carotid siphon. Bone window settings were reviewed which show no acute calvarial abnormality. Impression: 1. Diffuse senescent change as described above. Nothing acute is identified on noncontrast head CT exam. Diagnostic code #2 Agree with preliminary report issued by [facility] ([facility] preliminary report dictated on 04/28/17, 5:59 PM Central Time)
--- NOTE | 2017-04-29 10:33 | CR ---
Chest: Frontal view of the chest was obtained. Comparison: Previous chest x-ray of 01/28/14. Heart size and mediastinum are normal. Lungs are clear. Bony structures are grossly intact. Impression: 1. Nothing acute is appreciated on frontal chest x-ray. Diagnostic code #1
[2017-04-29] MEDS: hydrALAZINE 20 MG/ML SDV IVPUSH PRN (10:49)
[2017-04-29] MEDS: Nicotine 21 MG/24 Hr Patch TRDERM SCH (11:44)
[2017-04-29] MEDS: LORazepam 2 MG/ML MDV IV PRN (12:50)
[2017-04-29] MEDS ORDERED: LORazepam 2 MG/ML MDV IVPUSH ONE (13:24)
[2017-04-29] MEDS ORDERED: Aspirin 325 MG Tab.EC PO ONE (13:43)
[2017-04-29] MEDS ORDERED: diphenhydrAMINE 50 MG/ML SDV IVPUSH STA (13:43)
[2017-04-29] MEDS ORDERED: Acetaminophen 325 MG Supp RECTAL ONE (14:45)
--- NOTE | 2017-04-29 14:46 | MR ---
MRI brain Technique: Diffusion and fast T2-weighted axial imaging was obtained. No additional sequences could be obtained due to motion. Comparison: Previous head CT exam of 04/28/17. Findings: Diffusion sequence shows abnormal diffusion within the right occipital lobe and within the insular cortex. This is in the area of an old infarct. This area of diffusion abnormality shows increased signal on the T2 sequence believed to be irreversible. Normal signal void is seen within the major cerebral arteries within the skull base. Generalized atrophy is seen. Scattered areas of increased signal are seen within the periventricular white matter compatible with small vessel ischemic demyelination change. Several old lacunar infarcts are seen within the basal ganglia. Impression: 1. Findings compatible with fairly acute but irreversible infarct within the occipital lobe and extending into the insular cortex. This is in an area of previous infarct and findings felt compatible with extension in the area of the old infarct. 2. Other senescent change as described above. Diagnostic code #3
[2017-04-29] MEDS ORDERED: Hydrochlorothiazide 25 MG Tab PO SCH ×2 (16:00→21:00)
[2017-04-29] MEDS ORDERED: Acetaminophen 325 MG Supp RECTAL PRN (16:04)
--- NOTE | 2017-04-29 19:13 | PCM.SN ---
- Free Text/Narrative Note: Spoke to family member (Chasity), updated her about patient's current diagnosis and clinical progress. Informed Chasity, Abbey has an acute but irreversible infarct within the occipital lobe extending into the insular cortex per MRI. I further informed her, that Abbey likely had the stroke yesterday morning and would be too late at this point to administer clot busting agent (TPA). Chasity relayed to me that, patient had left sided weakness and she was dragging her foot yesterday morning at about 900-930. She was advised to go in for urgent eval but refused to leave until after late in the evening. At this point, I told Chasity our plan is secondary stroke prevention to include PT /OT and COUPON REDEMPTION CLERK. I informed her, patient suffered stroke likely from her poorly controlled blood pressure and tobacco abuse. Currently patient has no DPOA. Her next of kin to notify is . SW will discuss DPOA status with Chasity and plan for patient's rehab placement.
[2017-04-29] MEDS: Famotidine 20 MG/2 ML SDV IVPUSH SCH (20:54)
[2017-04-30] MEDS: hydrALAZINE 20 MG/ML SDV IVPUSH PRN (03:48)
[2017-04-30] MEDS: Nicotine 21 MG/24 Hr Patch TRDERM SCH (10:03)
[2017-04-30] MEDS: Famotidine 20 MG/2 ML SDV IVPUSH SCH ×2 (10:04→20:14)
--- NOTE | 2017-04-30 11:57 | US ---
Carotid ultrasound: Duplex and color flow imaging was obtained of the carotid arteries. Comparison: No previous carotid imaging. Findings: Intimal thickening and mild plaque is seen. Plaque is noted within the carotid bulb and origin of the internal and external carotid arteries. Velocity measurements Right side: CCA has a peak systolic velocity of 0.72 m/s. ICA has a peak systolic velocity of of 1.00 m/s and peak end-diastolic velocity of 0.32 m/s. ECA has a peak systolic velocity of 3.23 m/s. Vertebral artery has a peak systolic velocity of 0.29 m/s. ICA/CCA ratio is 1.4. Left side: CCA has a peak systolic velocity of 0.87 m/s. ICA has a peak systolic velocity of 0.71 m/s and peak end-diastolic velocity of 0.23 m/s. ECA has a peak systolic velocity of 1.04 m/s. Vertebral artery has a peak systolic velocity of 0.51 m/s. ICA/CCA ratio is 0.81. Impression: 1. Scattered plaque. 2. Velocity measurements within both internal carotid arteries correspond to stenosis in the range of 1-49%. 3. Velocity measurement within the right external carotid artery corresponds to stenosis greater than 50%. Diagnostic code #3
--- NOTE | 2017-04-30 12:50 | PCM.PN ---
- General Info Date of Service: 04/30/17 Admission Dx/Problem (Free Text): Admission Diagnosis/Problem Admission Diagnosis/Problem Vertigo Functional Status: Reports: Pain Controlled, Urinating, Incentive Spirometry. Denies: Tolerating Diet, Ambulating, New Symptoms - Review of Systems General: Reports: No Symptoms HEENT: Reports: No Symptoms Pulmonary: Reports: No Symptoms Cardiovascular: Reports: No Symptoms Gastrointestinal: Reports: No Symptoms Genitourinary: Reports: No Symptoms Musculoskeletal: Reports: No Symptoms Skin: Reports: No Symptoms Neurological: Reports: No Symptoms Psychiatric: Reports: No Symptoms Systems Review Comment:: Patient reports she "hurts all over." Exam is somewhat limited by patient's sleepy condition. She is still recovering from sedation given for MRI yesterday. She does however respond appropriately to questions. She has no other concerns. - Patient Data Vitals - Most Recent: Last Vital Signs Temp 98.0 F 04/30/17 04:00 Pulse 86 04/30/17 04:00 Resp 14 04/30/17 04:00 BP 139/82 04/30/17 06:04 Pulse Ox 100 04/30/17 04:00 Weight - Most Recent: 108 lb 12.8 oz I&O - Last 24 Hours: Intake & Output 04/29/17 04/30/17 04/30/17 22:59 06:59 14:59 Intake Total 250 0 Output Total 400 Balance -150 0 Lab Results Last 24 Hours: Laboratory Results - last 24 hr 04/29/17 04/29/17 04/30/17 Range/Units 06:30 06:30 06:45 WBC (3.98-10.04) K/mm3 RBC (3.98-5.22) M/mm3 Hgb (11.2-15.7) gm/L Hct (34.1-44.9) % MCV (79.4-94.8) fl MCH (25.6-32.2) pg MCHC (32.2-35.5) g/dl RDW Std Deviation (36.4-46.3) fL Plt Count (182-369) K/mm3 MPV (9.4-12.3) fl Neut % (Auto) (34.0-71.1) % Lymph % (Auto) (19.3-51.7) % [place] % (Auto) (4.7-12.5) % Eos % (Auto) (0.7-5.8) Baso % (Auto) (0.1-1.2) % Neut # (Auto) (1.56-6.13) K/mm3 Lymph # (Auto) (1.18-3.74) K/mm3 [place] # (Auto) (0.24-0.36) K/mm3 Eos # (Auto) (0.04-0.36) K/mm3 Baso # (Auto) (0.01-0.08) K/mm3 Manual Slide Review PT 10.2 (8.0-13.0) SECONDS INR 0.94 Sodium 137 (136-145) mEq/L Potassium 3.9 (3.5-5.1) mEq/L Chloride 98 (98-107) mEq/L Carbon Dioxide 26 (21-32) mEq/L Anion Gap 16.9 H (5-15) BUN 14 (7-18) mg/dL Creatinine 0.9 (0.55-1.02) mg/dL Est Cr Clr Drug Dosing 47.08 mL/min Estimated GFR (MDRD) > 60 (>60) mL/min BUN/Creatinine Ratio 15.6 (14-18) Glucose 94 (80-115) mg/dL Calcium 9.5 (8.5-10.1) mg/dL Magnesium 2.0 (1.8-2.4) mg/dl Triglycerides 90 (<150) mg/dL Cholesterol 245 H (<200) mg/dL LDL Cholesterol Direct 159 H* (<100) mg/dL HDL Cholesterol 68.0 H (40-59) mg/dL 04/30/17 Range/Units 06:45 WBC 8.21 (3.98-10.04) K/mm3 RBC 4.91 (3.98-5.22) M/mm3 Hgb 14.3 (11.2-15.7) gm/L Hct 43.3 (34.1-44.9) % MCV 88.2 (79.4-94.8) fl MCH 29.1 (25.6-32.2) pg MCHC 33.0 (32.2-35.5) g/dl RDW Std Deviation 47.2 H (36.4-46.3) fL Plt Count 218 (182-369) K/mm3 MPV 10.2 (9.4-12.3) fl Neut % (Auto) 90.2 H (34.0-71.1) % Lymph % (Auto) 4.9 L (19.3-51.7) % [place] % (Auto) 4.3 L (4.7-12.5) % Eos % (Auto) 0.2 L (0.7-5.8) Baso % (Auto) 0.2 (0.1-1.2) % Neut # (Auto) 7.40 H (1.56-6.13) K/mm3 Lymph # (Auto) 0.40 L (1.18-3.74) K/mm3 [place] # (Auto) 0.35 (0.24-0.36) K/mm3 Eos # (Auto) 0.02 L (0.04-0.36) K/mm3 Baso # (Auto) 0.02 (0.01-0.08) K/mm3 Manual Slide Review Normal smear PT (8.0-13.0) SECONDS INR Sodium (136-145) mEq/L Potassium (3.5-5.1) mEq/L Chloride (98-107) mEq/L Carbon Dioxide (21-32) mEq/L Anion Gap (5-15) BUN (7-18) mg/dL Creatinine (0.55-1.02) mg/dL Est Cr Clr Drug Dosing mL/min Estimated GFR (MDRD) (>60) mL/min BUN/Creatinine Ratio (14-18) Glucose (80-115) mg/dL Calcium (8.5-10.1) mg/dL Magnesium (1.8-2.4) mg/dl Triglycerides (<150) mg/dL Cholesterol (<200) mg/dL LDL Cholesterol Direct (<100) mg/dL HDL Cholesterol (40-59) mg/dL Med Orders - Current: Current Medications Acetaminophen (Tylenol) 325 mg RECTAL Q4H PRN PRN Reason: Pain/Fever Albuterol/Ipratropium (Duoneb 3.0-0.5 Mg/3 Ml) 3 ml NEB Q4H PRN PRN Reason: Shortness Of Breath/wheezing Last Admin: 04/29/17 08:35 Dose: 3 ml Famotidine (Pepcid) 20 mg IVPUSH BID MILDRED Last Admin: 04/30/17 10:04 Dose: 20 mg Hydralazine HCl (Apresoline) 20 mg IVPUSH Q4H PRN PRN Reason: Hypertension Last Admin: 04/30/17 03:48 Dose: 20 mg Promethazine HCl 12.5 mg/ (Sodium Chloride) 50.5 mls @ 100 mls/hr IV Q6H PRN PRN Reason: Nausea/Vomiting Lorazepam (Ativan) 0.5 mg IV Q6H PRN PRN Reason: Anxiety Last Admin: 04/29/17 12:50 Dose: 0.5 mg Magnesium Sulfate (Pharmacy To Dose - Magnesium Replacement) 1 dose .XX ASDIRECTED [facility] Metoprolol Tartrate (Lopressor) 5 mg IVPUSH Q4H PRN PRN Reason: Tachycardia Miscellaneous Information (Remove Patch) 1 ea TRDERM ONETIME ONE Stop: 05/01/17 21:01 Miscellaneous Information (Remove Patch) 0 ea TRDERM DAILY [facility] Last Admin: 04/30/17 10:05 Dose: 1 ea Modafinil (Provigil) 100 mg PO ONETIME ONE Stop: 04/30/17 12:46 Nicotine (Habitrol) 21 mg TRDERM DAILY [facility] Last Admin: 04/30/17 10:03 Dose: 21 mg Ondansetron HCl (Zofran) 4 mg IV Q6H PRN PRN Reason: Nausea/Vomiting Potassium Chloride (Pharmacy To Dose - Potassium Replacement) 1 dose .XX ASDIRECTED [facility] Sodium Chloride (Saline Flush) 10 ml FLUSH ASDIRECTED PRN PRN Reason: Keep Vein Open Last Admin: 04/28/17 16:34 Dose: 10 ml Discontinued Medications Acetaminophen (Tylenol) 650 mg PO Q4H PRN PRN Reason: Pain (Mild 1-3)/fever Acetaminophen (Tylenol) 325 mg RECTAL ONETIME ONE Stop: 04/29/17 14:46 Last Admin: 04/29/17 15:04 Dose: 325 mg Hydrocodone Bitart/Acetaminophen ([place] 325-5 Mg) 1 tab PO Q4H PRN PRN Reason: Pain (moderate 4-6) Aspirin (Ecotrin) 325 mg PO ONETIME ONE Stop: 04/29/17 13:44 Last Admin: 04/29/17 14:53 Dose: Not Given Bisacodyl (Dulcolax) 5 mg PO DAILY PRN PRN Reason: Constipation Clonidine HCl (Catapres) 0.1 mg PO ONETIME ONE Stop: 04/28/17 21:52 Last Admin: 04/28/17 22:21 Dose: 0.1 mg Diphenhydramine HCl (Benadryl) 50 mg IVPUSH ONETIME ONE Stop: 04/28/17 22:09 Last Admin: 04/29/17 00:10 Dose: Not Given Diphenhydramine HCl (Benadryl) 50 mg IVPUSH ONETIME STA Stop: 04/29/17 13:44 Last Admin: 04/29/17 13:45 Dose: 50 mg Diphtheria/Tetanus/Acell Pertussis (Adacel) 0.5 ml IM .ONCE ONE Stop: 04/29/17 09:50 Docusate Sodium (Colace) 100 mg PO BID PRN PRN Reason: Constipation Enalaprilat (Vasotec Iv) 1.25 mg IVPUSH ONETIME ONE Stop: 04/28/17 20:08 Last Admin: 04/28/17 20:16 Dose: 1.25 mg Hydrochlorothiazide (Hydrochlorothiazide) 25 mg PO BIDDIURETIC MILDRED Last Admin: 04/29/17 16:05 Dose: Not Given Hydrochlorothiazide (Hydrochlorothiazide) 25 mg PO BIDDIURETIC MILDRED Sodium Chloride (Normal Saline) 1,000 mls @ 100 mls/hr IV ONETIME ONE Stop: 04/29/17 02:09 Last Admin: 04/28/17 16:31 Dose: 100 mls/hr Magnesium Sulfate 2 gm/ Premix 50 mls @ 25 mls/hr IV ONETIME ONE Stop: 04/29/17 01:28 Last Admin: 04/29/17 00:02 Dose: 25 mls/hr Ketorolac Tromethamine (Toradol) 15 mg IVPUSH ONETIME ONE Stop: 04/28/17 18:07 Last Admin: 04/28/17 18:21 Dose: 15 mg Lorazepam (Ativan) 1.5 mg IVPUSH ONETIME ONE Stop: 04/29/17 13:25 Last Admin: 04/29/17 13:30 Dose: 1.5 mg Meclizine HCl (Antivert) 25 mg PO ONETIME ONE Stop: 09/13/17 18:07 Last Admin: 04/28/17 18:24 Dose: 25 mg Meclizine HCl (Antivert) 25 mg PO Q6H PRN PRN Reason: Dizziness Morphine Sulfate (Morphine) 1 mg IVPUSH Q4H PRN PRN Reason: Other Stop: 04/29/17 23:18 Nicotine (Habitrol) 21 mg TRDERM ONETIME ONE Stop: 04/28/17 19:56 Last Admin: 04/28/17 20:14 Dose: 21 mg Ondansetron HCl (Zofran) 4 mg IVPUSH ONETIME ONE Stop: 04/28/17 18:07 Last Admin: 04/28/17 18:17 Dose: 4 mg Polyethylene Glycol (Miralax) 17 gm PO DAILY PRN PRN Reason: Constipation Scopolamine (Transderm-Scop) 1.5 mg TOP ONETIME ONE Stop: 04/28/17 21:01 Last Admin: 04/28/17 22:21 Dose: 1.5 mg Senna/Docusate Sodium (Senna Plus) 1 tab PO BID PRN PRN Reason: Constipation Temazepam (Restoril) 7.5 mg PO BEDTIME PRN PRN Reason: Sleep - Exam Quality Assessment: Supplemental Oxygen, DVT Prophylaxis General: Cooperative, Lethargic (doese open eyes when asked and responds to questions appropriatley ) HEENT: Pupils Equal, Pupils Reactive, Mucous Membr. Moist/[place] Neck: Supple, Trachea Midline, No JVD Lungs: Clear to Auscultation, Normal Respiratory Effort Cardiovascular: Regular Rate, Regular Rhythm, No Murmurs GI/Abdominal Exam: Soft, Non-Tender, No Organomegaly, No Distention, No Abnormal Bruit, No Mass, Pelvis Stable, Abnormal Bowel Sounds (Hyperactive) (Female) Exam: Deferred Extremities: Normal Inspection, No Pedal Edema, Normal Capillary Refill, Other ( She is moving both extremities however she denies any sensation in her left leg. ) Peripheral Pulses: 1+: Radial (L), Radial (R), Posterior Tibial (L), Posterior Tibial (R), Dorsalis Pedis (L), Dorsalis Pedis (R) Skin: Warm, Dry, Intact Neurological: No New Focal Deficit, Normal Tone, Strength Equal Bilateral (Weak) , Other (Difficult to administrative judge neurological condition as patient is still fairly well sedated. Patient has prior surgical resection of mandible so unable to determine if face is drooping or speech is regular. Essentially unchanged since exam yesterday.) Psy/Mental Status: Other (Difficult to administrative judge due to sedation) Physical Findings Comments:: Patient is essentially unchanged since my exam yesterday. - Problem List & Annotations (1) Stroke SNOMED Code(s): 056870831 Code(s): I63.9 - CEREBRAL INFARCTION, UNSPECIFIED Status: Acute Priority : High Current Visit: Yes Qualifiers: CVA mechanism: unspecified Qualified Code(s): I63.9 - Cerebral infarction, unspecified (2) Pavel-neglect of left side SNOMED Code(s): 577360725 Code(s): R41.4 - NEUROLOGIC NEGLECT SYNDROME Status: Acute Priority: High Current Visit: Yes (3) Weakness SNOMED Code(s): 46156506 Code(s): R53.1 - WEAKNESS Status: Acute Priority: High Current Visit: Yes (4) Abdominal pain SNOMED Code(s): 90468266 Code(s): R10.9 - UNSPECIFIED ABDOMINAL PAIN Status: Acute Priority: Medium Current Visit: No - Problem List Review Problem List Initiated/Reviewed/Updated: Yes - My Orders Last 24 Hours: My Active Orders 04/29/17 15:39 Swallow Screen [Nursing Bedside Swallow Screen] [RC] ASDIRECTED 04/29/17 16:04 Acetaminophen [Tylenol] 325 mg RECTAL Q4H PRN 04/29/17 21:00 Famotidine [Pepcid] 20 mg IVPUSH BID 04/29/17 Dinner NPO Now [Nothing per Oral Now Diet] [DIET] 04/30/17 12:45 Modafinil [Provigil] 100 mg PO ONETIME ONE - Assessment Assessment:: Into visit with Abbey today. Her sister was in the room and discussed prognosis and treatment thus far. Abbey is laying in bed somewhat lethargic although she does respond when asked questions and will put her eyes on command. Physical exam was essentially unremarkable from exam yesterday. We are waiting on [employer] exam to ensure patient can swallow without aspirating. At that time she will resume by mouth medications. We will also consider starting IV fluids unless the patient is able to swallow and rehydrate herself. We will continue to monitor her lab values. [place] and is attempting to find a way to visit patient. Echo and carotid ultrasound were performed today. We will await those results. She will likely stay through the weekend and will consider discharge next week pending rehabilitation placement. - Plan Plan:: Assessment/Plan: Acute: Stroke -Neglect on left side -Weakness -CT scan in ED was negative -MRI confirms infarct within occipital lobe -Will make NPO pending swallow study Dizziness - No associated nasal/throat or hearing complaints - More of dys-equilibrium - No room spinning - Has resolved as soon as she got to the floor - She is still nauseous - She smokes but does not drink ETOH - She denies illicit drug use or Rx drug abuse - Scopolamine patch x1 and Benadryl 50 mg IVP x1 - PRN Meclizine - I felt this is more related to poor nutritional status and hydration Nicotine Abuse/Dependence - Smokes 1 ppd - Nicotine Patch daily HTN - Stress vs Nicotine Withdrawal - She carries no hx/o HTN - PRN anti-hypertensive meds Malnutrition/Poor Nutritional State - Emaciated and not well kept - Poor intake due to anatomic and structural changes after her oral/neck surgery - She is w/o dentition or artificial teeth - Dietary consult to improve nutritional status - Consider IV fluids unless patient passes swallow study this afternoon Chronic: COPD - New diagnosis -Confirmed by PFT -Will continue to monitor/treat Resolved: Hypomagnesemia - Mg 1.7 ---> 2.5 - Will replete - Pharmacy to replete and monitor subsequent levels Plan: Admit to Med-Surg Resume Home Meds when she is off NPO UDS- Negative PT/OT consult for deconditioning SW consult for to assess home and social aspect of her living condition, will need rehabilitation CM for d/c planning Swallow study to determine aspiration risk Additional orders as above Code status: 1
[2017-04-30] MEDS ORDERED: Modafinil 200 MG Tab PO ONE (15:00)
[2017-04-30] MEDS ORDERED: Modafinil 200 MG Tab PO STA (17:52)
[2017-04-30] MEDS: Metoprolol Tartrate 5 MG/5 ML SDV IVPUSH PRN (20:05)
[2017-04-30] MEDS: LORazepam 2 MG/ML MDV IV PRN (20:20)
--- NOTE | 2017-05-01 07:44 | PCM.PN ---
- General Info Date of Service: 05/01/17 Admission Dx/Problem (Free Text): Admission Diagnosis/Problem Admission Diagnosis/Problem Vertigo Subjective Update: Follow Up Functional Status: Reports: Pain Controlled, Tolerating Diet, Ambulating ( partially), Urinating. Denies: New Symptoms - Review of Systems General: Denies: Fever, Weakness, Fatigue, Malaise, Chills HEENT: Reports: No Symptoms Pulmonary: Denies: Shortness of Breath Cardiovascular: Denies: Chest Pain Gastrointestinal: Denies: Abdominal Pain, Nausea, Vomiting Genitourinary: Reports: No Symptoms Musculoskeletal: Reports: No Symptoms Skin: Denies: Cyanosis, Jaundice, Mottled, Pallor Neurological: Reports: Pre-Existing Deficit, Trouble Speaking, Difficulty Walking, Weakness, Change in Speech, Gait Disturbance, Other (foot drop and muscle twitching per nurse). Denies: Confusion, Dizziness, Headache, Numbness, Seizure, Syncope, Tingling Psychiatric: Denies: Depression, Anxiety, Agitation, Hallucinations Systems Review Comment:: Patient was up all night due to stimulant she got at 1800 yesterday evening. She also had an unwitnessed fall early this morning. She fell out of bed attempting to get out. No obvious signs of trauma except from previous bruises noted on admission. She is currently sedated and sleepy. She is not very cooperative and able to follow simple commands. Her Head CT scan shows no acute intra-cranial bleed seen. - Patient Data Vitals - Most Recent: Last Vital Signs Temp 36.7 C 05/01/17 01:33 Pulse 102 H 05/01/17 01:33 Resp 18 05/01/17 01:33 BP 153/74 H 05/01/17 01:33 Pulse Ox 95 05/01/17 03:06 Weight - Most Recent: 48.943 kg I&O - Last 24 Hours: Intake & Output 04/30/17 05/01/17 05/01/17 22:59 06:59 14:59 Intake Total 120 Balance 120 Lab Results Last 24 Hours: Laboratory Results - last 24 hr 05/01/17 Range/Units 05:50 Sodium 137 (136-145) mEq/L Potassium 3.8 (3.5-5.1) mEq/L Chloride 101 (98-107) mEq/L Carbon Dioxide 24 (21-32) mEq/L Anion Gap 15.8 H (5-15) BUN 21 H (7-18) mg/dL Creatinine 1.0 (0.55-1.02) mg/dL Est Cr Clr Drug Dosing 42.37 mL/min Estimated GFR (MDRD) 56 (>60) mL/min BUN/Creatinine Ratio 21.0 H (14-18) Glucose 109 (80-115) mg/dL Calcium 9.3 (8.5-10.1) mg/dL Magnesium 1.9 (1.8-2.4) mg/dl Med Orders - Current: Current Medications Acetaminophen (Tylenol) 325 mg RECTAL Q4H PRN PRN Reason: Pain/Fever Albuterol/Ipratropium (Duoneb 3.0-0.5 Mg/3 Ml) 3 ml NEB Q4H PRN PRN Reason: Shortness Of Breath/wheezing Last Admin: 04/29/17 08:35 Dose: 3 ml Famotidine (Pepcid) 20 mg IVPUSH BID [facility] Last Admin: 04/30/17 20:14 Dose: 20 mg Hydralazine HCl (Apresoline) 20 mg IVPUSH Q4H PRN PRN Reason: Hypertension Last Admin: 04/30/17 03:48 Dose: 20 mg Promethazine HCl 12.5 mg/ (Sodium Chloride) 50.5 mls @ 100 mls/hr IV Q6H PRN PRN Reason: Nausea/Vomiting Lorazepam (Ativan) 0.5 mg IV Q6H PRN PRN Reason: Anxiety Last Admin: 04/30/17 20:20 Dose: 0.5 mg Magnesium Sulfate (Pharmacy To Dose - Magnesium Replacement) 1 dose .XX ASDIRECTED [facility] Metoprolol Tartrate (Lopressor) 5 mg IVPUSH Q4H PRN PRN Reason: Tachycardia Last Admin: 04/30/17 20:05 Dose: 5 mg Miscellaneous Information (Remove Patch) 1 ea TRDERM ONETIME ONE Stop: 05/01/17 21:01 Miscellaneous Information (Remove Patch) 0 ea TRDERM DAILY [facility] Last Admin: 04/30/17 10:05 Dose: 1 ea Nicotine (Habitrol) 21 mg TRDERM DAILY [facility] Last Admin: 04/30/17 10:03 Dose: 21 mg Ondansetron HCl (Zofran) 4 mg IV Q6H PRN PRN Reason: Nausea/Vomiting Potassium Chloride (Pharmacy To Dose - Potassium Replacement) 1 dose .XX ASDIRECTED [facility] Sodium Chloride (Saline Flush) 10 ml FLUSH ASDIRECTED PRN PRN Reason: Keep Vein Open Last Admin: 04/28/17 16:34 Dose: 10 ml Discontinued Medications Acetaminophen (Tylenol) 650 mg PO Q4H PRN PRN Reason: Pain (Mild 1-3)/fever Acetaminophen (Tylenol) 325 mg RECTAL ONETIME ONE Stop: 04/29/17 14:46 Last Admin: 04/29/17 15:04 Dose: 325 mg Hydrocodone Bitart/Acetaminophen ([place]vell 325-5 Mg) 1 tab PO Q4H PRN PRN Reason: Pain (moderate 4-6) Aspirin (Ecotrin) 325 mg PO ONETIME ONE Stop: 04/29/17 13:44 Last Admin: 04/29/17 14:53 Dose: Not Given Bisacodyl (Dulcolax) 5 mg PO DAILY PRN PRN Reason: Constipation Clonidine HCl (Catapres) 0.1 mg PO ONETIME ONE Stop: 04/28/17 21:52 Last Admin: 04/28/17 22:21 Dose: 0.1 mg Diphenhydramine HCl (Benadryl) 50 mg IVPUSH ONETIME ONE Stop: 04/28/17 22:09 Last Admin: 04/29/17 00:10 Dose: Not Given Diphenhydramine HCl (Benadryl) 50 mg IVPUSH ONETIME STA Stop: 04/29/17 13:44 Last Admin: 04/29/17 13:45 Dose: 50 mg Diphtheria/Tetanus/Acell Pertussis (Adacel) 0.5 ml IM .ONCE ONE Stop: 04/29/17 09:50 Docusate Sodium (Colace) 100 mg PO BID PRN PRN Reason: Constipation Enalaprilat (Vasotec Iv) 1.25 mg IVPUSH ONETIME ONE Stop: 04/28/17 20:08 Last Admin: 04/28/17 20:16 Dose: 1.25 mg Hydrochlorothiazide (Hydrochlorothiazide) 25 mg PO BIDDIURETIC [facility] Last Admin: 04/29/17 16:05 Dose: Not Given Hydrochlorothiazide (Hydrochlorothiazide) 25 mg PO BIDDIURETIC [facility] Sodium Chloride (Normal Saline) 1,000 mls @ 100 mls/hr IV ONETIME ONE Stop: 04/29/17 02:09 Last Admin: 04/28/17 16:31 Dose: 100 mls/hr Magnesium Sulfate 2 gm/ Premix 50 mls @ 25 mls/hr IV ONETIME ONE Stop: 04/29/17 01:28 Last Admin: 04/29/17 00:02 Dose: 25 mls/hr Ketorolac Tromethamine (Toradol) 15 mg IVPUSH ONETIME ONE Stop: 04/28/17 18:07 Last Admin: 04/28/17 18:21 Dose: 15 mg Lorazepam (Ativan) 1.5 mg IVPUSH ONETIME ONE Stop: 04/29/17 13:25 Last Admin: 04/29/17 13:30 Dose: 1.5 mg Meclizine HCl (Antivert) 25 mg PO ONETIME ONE Stop: 04/28/17 18:07 Last Admin: 04/28/17 18:24 Dose: 25 mg Meclizine HCl (Antivert) 25 mg PO Q6H PRN PRN Reason: Dizziness Modafinil (Provigil) 100 mg PO ONETIME ONE Stop: 04/30/17 15:01 Last Admin: 04/30/17 18:40 Dose: Not Given Modafinil (Provigil) 100 mg PO NOW STA Stop: 04/30/17 17:53 Last Admin: 04/30/17 18:40 Dose: 100 mg Morphine Sulfate (Morphine) 1 mg IVPUSH Q4H PRN PRN Reason: Other Stop: 04/29/17 23:18 Nicotine (Habitrol) 21 mg TRDERM ONETIME ONE Stop: 04/28/17 19:56 Last Admin: 04/28/17 20:14 Dose: 21 mg Ondansetron HCl (Zofran) 4 mg IVPUSH ONETIME ONE Stop: 04/28/17 18:07 Last Admin: 04/28/17 18:17 Dose: 4 mg Polyethylene Glycol (Miralax) 17 gm PO DAILY PRN PRN Reason: Constipation Scopolamine (Transderm-Scop) 1.5 mg TOP ONETIME ONE Stop: 04/28/17 21:01 Last Admin: 04/28/17 22:21 Dose: 1.5 mg Senna/Docusate Sodium (Senna Plus) 1 tab PO BID PRN PRN Reason: Constipation Temazepam (Restoril) 7.5 mg PO BEDTIME PRN PRN Reason: Sleep - Exam General: Sedated, Lethargic HEENT: Other (missing lowe jaw) Neck: No Thyromegaly, Other (asymmetric and disfigured). No: Lymphadenopathy Lungs: Normal Respiratory Effort, Decreased Breath Sounds Cardiovascular: Regular Rate, Regular Rhythm GI/Abdominal Exam: Normal Bowel Sounds, Soft, Non-Tender, No Organomegaly, No Distention, No Abnormal Bruit, No Mass (Female) Exam: Deferred Back Exam: Decreased Range of Motion Extremities: Normal Inspection, Normal Range of Motion, Non-Tender, No Pedal Edema, Normal Capillary Refill Peripheral Pulses: 2+: Dorsalis Pedis (L), Dorsalis Pedis (R) Skin: Warm, Dry, Intact Neurological: No New Focal Deficit. No: Normal Gait, Normal Speech, Normal Tone , Strength Equal Bilateral, Reflexes Equal Bilateral, Sensation Intact Psy/Mental Status: Other (Sedated-Lethargic she was up all night ) - Problem List Review Problem List Initiated/Reviewed/Updated: Yes - My Orders Last 24 Hours: My Active Orders 04/30/17 09:00 Remove Patch 0 ea TRDERM DAILY 04/30/17 Dinner National Dysphagia Diet [DIET] 05/01/17 21:00 Remove Patch 1 ea TRDERM ONETIME ONE 05/02/17 05:11 MAGNESIUM [CHEM] AM - Assessment Assessment:: Into visit with Abbey today. Her sister was in the room and discussed prognosis and treatment thus far. Abbey is laying in bed somewhat lethargic although she does respond when asked questions and will put her eyes on command. Physical exam was essentially unremarkable from exam yesterday. We are waiting on CONSTRUCTION CODE ADMINISTRATOR exam to ensure patient can swallow without aspirating. At that time she will resume by mouth medications. We will also consider starting IV fluids unless the patient is able to swallow and rehydrate herself. We will continue to monitor her lab values. Her [place] and is attempting to find a way to visit patient. Echo and carotid ultrasound were performed today. We will await those results. She will likely stay through the weekend and will consider discharge next week pending rehabilitation placement. - Plan Plan:: Assessment/Plan: Acute: Stroke - Neglect on left side - Left arm weakness and left foot drop - CT scan in ED was negative - MRI confirms acute irreversible infarct within occipital lobe and posterior parietal lobe - Swallow study done - She is now on thin liquids with National Dysphagia Level 3 diet Muscle Spasm/Fasciculations - This is related to stroke - Baclofen 10 mg po TID Hyperlipidemia - AHA-ND3 diet - Simvastatin 40 m gpo HS Malnutrition/Poor Nutritional State - Emaciated and not well kept - Poor intake due to anatomic and structural changes after her oral/neck surgery - She is w/o dentition or artificial teeth - Dietary consult to improve nutritional status - CONSTRUCTION CODE ADMINISTRATOR following New Onset COPD/Emphysema - Inpatient PFT shows Severe COPD - She is at baseline and not in acute respiratory distress - PRN Bronchodilators and Supplemental O2 Nicotine Abuse/Dependence - Smokes 1 ppd - Nicotine Patch daily S/p Fall - No obvious trauma - Head CT scan shows no acute brain bleed - 1:1 care Resolved: Hypomagnesemia - Mg 1.7 - Will replete - Pharmacy to replete and monitor subsequent levels Dizziness - No associated nasal/throat or hearing complaints - More of dys-equilibrium - No room spinning - Dizziness resolved as soon as she got to the floor - No slurred speech or facial droop - Head CT scan: Nothing acute is identified - R/o Stroke: No MRI/MRA services at night - She is still nauseous - She smokes but does not drink ETOH - She denies illicit drug use or Rx drug abuse - Scopolamine patch x1 and Benadryl 50 mg IVP x1 - PRN Meclizine Malignant HTN, Resolved - Stress vs Nicotine Withdrawal - She carries no hx/o HTN - She had SBPs in the 200s per ED notes - She received initial treatment in ED - Continue PRN anti-hypertensive meds Plan: She is hemodynamically stable Continue current treatment Routine AM Labs 1:1 Care, She is high fall risk Aspiration Precautions CONSTRUCTION CODE ADMINISTRATOR follow up No stimulant in the evening or at night Continue PT/OT SW/CM for d/c planning Additional orders as above Code status: 1 LOS anticipate > 96 hrs pending rehab placement
[2017-05-01] MEDS ORDERED: Enoxaparin 30 MG/0.3 ML Syringe SUBCUT SCH (09:00)
[2017-05-01] MEDS: Famotidine 20 MG/2 ML SDV IVPUSH SCH ×2 (09:20→20:41)
[2017-05-01] MEDS: Nicotine 21 MG/24 Hr Patch TRDERM SCH (09:21)
--- NOTE | 2017-05-01 09:52 | CT ---
Head CT Technique: Multiple axial sections through the brain were obtained. Intravenous contrast was not utilized. Comparison: Previous MRI brain dated 04/29/[address] exam dated 04/28/17. Findings: Evolving infarct is identified within the posterior right parietal and occipital region. Old infarct is also noted within the posterior right parietal region. Diminished density is noted within the periventricular white matter compatible with small vessel ischemic demyelination change. Ventricles along with basal cisterns and sulci over the convexities are mildly prominent. No evidence of intracranial hemorrhage. No midline shift or mass effect is seen. Atherosclerotic calcification is seen within the carotid siphon and within the vertebral vessels. Old lacunar infarcts are seen within the basal ganglia. Bone window settings were reviewed which shows the visualized sinuses to appear clear. No acute calvarial abnormality is seen. Impression: 1. Evolving infarct within the posterior right parietal and occipital region. Superimposed old infarct is seen within the posterior right parietal region. 2. Old lacunar infarcts within the basal ganglia. 3. No acute intracranial hemorrhage is seen. Diagnostic code #3
[2017-05-01] MEDS ORDERED: Baclofen 10 MG Tab PO PRN (10:16)
[2017-05-01] MEDS: Baclofen 10 MG Tab PO SCH ×3 (12:26→20:39)
[2017-05-01] MEDS: Acetaminophen 325 MG Tab PO PRN (13:13)
[2017-05-01] MEDS ORDERED: Magnesium Sulfate/Water 2 GM in Premix Bag 1 BAG IV ONE (14:45)
[2017-05-01] MEDS ORDERED: HYDROmorphone 0.5 MG/0.5 ML Syringe IVPUSH PRN (15:37)
[2017-05-01] MEDS: Acetaminophen/HYDROcodone 325-5 MG Tab PO PRN (17:49)
[2017-05-01] MEDS: Simvastatin 40 MG Tab PO SCH (20:37)
[2017-05-01] MEDS: Temazepam 15 MG Cap PO PRN (20:40)
--- NOTE | 2017-05-02 07:48 | PCM.PN ---
- General Info Date of Service: 05/02/17 Admission Dx/Problem (Free Text): Admission Diagnosis/Problem Admission Diagnosis/Problem Vertigo Subjective Update: Follow Up Functional Status: Reports: Pain Controlled, Urinating. Denies: New Symptoms - Review of Systems General: Reports: Weakness. Denies: Fever, Fatigue, Malaise, Chills HEENT: Reports: No Symptoms Pulmonary: Denies: Shortness of Breath Cardiovascular: Denies: Chest Pain, Palpitations, Dyspnea on Exertion, Edema, Lightheadedness Gastrointestinal: Denies: Abdominal Pain, Nausea, Vomiting Genitourinary: Reports: No Symptoms Musculoskeletal: Reports: No Symptoms Skin: Denies: Cyanosis, Jaundice, Pallor Neurological: Reports: Pre-Existing Deficit, Difficulty Walking, Weakness, Gait Disturbance. Denies: Confusion Psychiatric: Denies: Anxiety Systems Review Comment:: No overnight or acute issues. She feels better. She slept good last night. She has no new complaints. - Patient Data Vitals - Most Recent: Last Vital Signs Temp 35.9 C 05/02/17 06:02 Pulse 72 05/02/17 06:02 Resp 13 05/02/17 06:02 BP 122/98 H 05/02/17 06:02 Pulse Ox 95 05/02/17 06:02 Weight - Most Recent: 48.761 kg I&O - Last 24 Hours: Intake & Output 05/01/17 05/02/17 05/02/17 22:59 06:59 14:59 Intake Total 670 200 Balance 670 200 Lab Results Last 24 Hours: Laboratory Results - last 24 hr 05/02/17 Range/Units 06:00 Magnesium 2.8 H (1.8-2.4) mg/dl Med Orders - Current: Current Medications Acetaminophen (Tylenol) 325 mg RECTAL Q4H PRN PRN Reason: Pain/Fever Acetaminophen (Tylenol) 650 mg PO Q4H PRN PRN Reason: Pain Last Admin: 05/01/17 13:13 Dose: 650 mg Hydrocodone Bitart/Acetaminophen (Almond 325-5 Mg) 1 tab PO Q4H PRN PRN Reason: Pain Last Admin: 05/01/17 17:49 Dose: 1 tab Albuterol/Ipratropium (Duoneb 3.0-0.5 Mg/3 Ml) 3 ml NEB Q4H PRN PRN Reason: Shortness Of Breath/wheezing Last Admin: 04/29/17 08:35 Dose: 3 ml Baclofen (Lioresal) 10 mg PO TID [facility] Last Admin: 05/01/17 20:39 Dose: 10 mg Enoxaparin Sodium (Lovenox) 40 mg SUBCUT DAILY [facility] Famotidine (Pepcid) 20 mg IVPUSH BID [facility] Last Admin: 05/01/17 20:41 Dose: 20 mg Hydralazine HCl (Apresoline) 20 mg IVPUSH Q4H PRN PRN Reason: Hypertension Last Admin: 04/30/17 03:48 Dose: 20 mg Hydromorphone HCl (Dilaudid) 0.5 mg IVPUSH Q4H PRN PRN Reason: Pain (severe 7-10) Promethazine HCl 12.5 mg/ (Sodium Chloride) 50.5 mls @ 100 mls/hr IV Q6H PRN PRN Reason: Nausea/Vomiting Lorazepam (Ativan) 0.5 mg IV Q6H PRN PRN Reason: Anxiety Last Admin: 04/30/17 20:20 Dose: 0.5 mg Magnesium Sulfate (Pharmacy To Dose - Magnesium Replacement) 1 dose .XX ASDIRECTED [facility] Metoprolol Tartrate (Lopressor) 5 mg IVPUSH Q4H PRN PRN Reason: Tachycardia Last Admin: 04/30/17 20:05 Dose: 5 mg Miscellaneous Information (Remove Patch) 0 ea TRDERM DAILY [facility] Last Admin: 05/01/17 09:16 Dose: Not Given Modafinil (Provigil) 100 mg PO DAILY [facility] Nicotine (Habitrol) 21 mg TRDERM DAILY [facility] Last Admin: 05/01/17 09:21 Dose: 21 mg Ondansetron HCl (Zofran) 4 mg IV Q6H PRN PRN Reason: Nausea/Vomiting Potassium Chloride (Pharmacy To Dose - Potassium Replacement) 1 dose .XX ASDIRECTED [facility] Simvastatin (Zocor) 40 mg PO BEDTIME [facility] Last Admin: 05/01/17 20:37 Dose: 40 mg Sodium Chloride (Saline Flush) 10 ml FLUSH ASDIRECTED PRN PRN Reason: Keep Vein Open Last Admin: 04/28/17 16:34 Dose: 10 ml Temazepam (Restoril) 15 mg PO BEDTIME PRN PRN Reason: Sleep Last Admin: 05/01/17 20:40 Dose: 15 mg Discontinued Medications Acetaminophen (Tylenol) 650 mg PO Q4H PRN PRN Reason: Pain (Mild 1-3)/fever Acetaminophen (Tylenol) 325 mg RECTAL ONETIME ONE Stop: 04/29/17 14:46 Last Admin: 04/29/17 15:04 Dose: 325 mg Hydrocodone Bitart/Acetaminophen (Almond 325-5 Mg) 1 tab PO Q4H PRN PRN Reason: Pain (moderate 4-6) Aspirin (Ecotrin) 325 mg PO ONETIME ONE Stop: 04/29/17 13:44 Last Admin: 04/29/17 14:53 Dose: Not Given Baclofen (Lioresal) 10 mg PO TID PRN PRN Reason: Other Bisacodyl (Dulcolax) 5 mg PO DAILY PRN PRN Reason: Constipation Clonidine HCl (Catapres) 0.1 mg PO ONETIME ONE Stop: 04/28/17 21:52 Last Admin: 04/28/17 22:21 Dose: 0.1 mg Diphenhydramine HCl (Benadryl) 50 mg IVPUSH ONETIME ONE Stop: 04/28/17 22:09 Last Admin: 04/29/17 00:10 Dose: Not Given Diphenhydramine HCl (Benadryl) 50 mg IVPUSH ONETIME STA Stop: 04/29/17 13:44 Last Admin: 04/29/17 13:45 Dose: 50 mg Diphtheria/Tetanus/Acell Pertussis (Adacel) 0.5 ml IM .ONCE ONE Stop: 04/29/17 09:50 Docusate Sodium (Colace) 100 mg PO BID PRN PRN Reason: Constipation Enalaprilat (Vasotec Iv) 1.25 mg IVPUSH ONETIME ONE Stop: 04/28/17 20:08 Last Admin: 04/28/17 20:16 Dose: 1.25 mg Enoxaparin Sodium (Lovenox) 30 mg SUBCUT DAILY [facility] Last Admin: 05/01/17 09:20 Dose: 30 mg Hydrochlorothiazide (Hydrochlorothiazide) 25 mg PO BIDDIURETIC [facility] Last Admin: 04/29/17 16:05 Dose: Not Given Hydrochlorothiazide (Hydrochlorothiazide) 25 mg PO BIDDIURETIC [facility] Sodium Chloride (Normal Saline) 1,000 mls @ 100 mls/hr IV ONETIME ONE Stop: 04/29/17 02:09 Last Admin: 04/28/17 16:31 Dose: 100 mls/hr Magnesium Sulfate 2 gm/ Premix 50 mls @ 25 mls/hr IV ONETIME ONE Stop: 04/29/17 01:28 Last Admin: 04/29/17 00:02 Dose: 25 mls/hr Magnesium Sulfate 2 gm/ Premix 50 mls @ 50 mls/hr IV ONETIME ONE Stop: 05/01/17 15:44 Last Admin: 05/01/17 17:30 Dose: 50 mls/hr Ketorolac Tromethamine (Toradol) 15 mg IVPUSH ONETIME ONE Stop: 04/28/17 18:07 Last Admin: 04/28/17 18:21 Dose: 15 mg Lorazepam (Ativan) 1.5 mg IVPUSH ONETIME ONE Stop: 04/29/17 13:25 Last Admin: 04/29/17 13:30 Dose: 1.5 mg Meclizine HCl (Antivert) 25 mg PO ONETIME ONE Stop: 04/28/17 18:07 Last Admin: 04/28/17 18:24 Dose: 25 mg Meclizine HCl (Antivert) 25 mg PO Q6H PRN PRN Reason: Dizziness Miscellaneous Information (Remove Patch) 1 ea TRDERM ONETIME ONE Stop: 05/01/17 21:01 Last Admin: 05/01/17 20:43 Dose: 1 ea Modafinil (Provigil) 100 mg PO ONETIME ONE Stop: 04/30/17 15:01 Last Admin: 04/30/17 18:40 Dose: Not Given Modafinil (Provigil) 100 mg PO NOW STA Stop: 04/30/17 17:53 Last Admin: 04/30/17 18:40 Dose: 100 mg Morphine Sulfate (Morphine) 1 mg IVPUSH Q4H PRN PRN Reason: Other Stop: 04/29/17 23:18 Nicotine (Habitrol) 21 mg TRDERM ONETIME ONE Stop: 04/28/17 19:56 Last Admin: 04/28/17 20:14 Dose: 21 mg Ondansetron HCl (Zofran) 4 mg IVPUSH ONETIME ONE Stop: 04/28/17 18:07 Last Admin: 04/28/17 18:17 Dose: 4 mg Polyethylene Glycol (Miralax) 17 gm PO DAILY PRN PRN Reason: Constipation Scopolamine (Transderm-Scop) 1.5 mg TOP ONETIME ONE Stop: 04/28/17 21:01 Last Admin: 04/28/17 22:21 Dose: 1.5 mg Senna/Docusate Sodium (Senna Plus) 1 tab PO BID PRN PRN Reason: Constipation Temazepam (Restoril) 7.5 mg PO BEDTIME PRN PRN Reason: Sleep - Exam General: Alert, Oriented, Cooperative, No Acute Distress, Other (Emaciated) HEENT: Pupils Equal, Pupils Reactive, Mucous Membr. Moist/[place]. No: EOMI Neck: Supple, Trachea Midline, No Thyromegaly, Other (missing lower jaw) Lungs: Normal Respiratory Effort, Decreased Breath Sounds Cardiovascular: Regular Rate, Regular Rhythm GI/Abdominal Exam: Normal Bowel Sounds, Soft, Non-Tender, No Organomegaly, No Distention, No Abnormal Bruit, No Mass (Female) Exam: Deferred Back Exam: Normal Inspection, Decreased Range of Motion Extremities: Normal Inspection, Normal Range of Motion, Non-Tender, No Pedal Edema, Normal Capillary Refill Peripheral Pulses: 2+: Dorsalis Pedis (L), Dorsalis Pedis (R) Skin: Warm, Dry, Intact Neurological: No New Focal Deficit, Other (Able to partially move and lift left hand. Unable to move left leg and distal toes). No: Normal Gait, Normal Speech , Normal Tone (not on left arm and left lower extremity), Strength Equal Bilateral, Reflexes Equal Bilateral, Sensation Intact, Cranial Nerves Intact Psy/Mental Status: Alert, Depressed. No: Normal Affect, Suicidal Ideation, Homicidal Ideation - Problem List Review Problem List Initiated/Reviewed/Updated: Yes - My Orders Last 24 Hours: My Active Orders 05/01/17 10:45 Baclofen [Lioresal] 10 mg PO TID 05/01/17 13:06 Acetaminophen [Tylenol] 650 mg PO Q4H PRN 05/01/17 15:37 Acetaminophen/HYDROcodone [Almond 325-5 MG] 1 tab PO Q4H PRN HYDROmorphone [Dilaudid] 0.5 mg IVPUSH Q4H PRN 05/01/17 20:16 Temazepam [Restoril] 15 mg PO BEDTIME PRN 05/01/17 21:00 Simvastatin [Zocor] 40 mg PO BEDTIME 05/01/17 Lunch Heart Healthy Diet [DIET] 05/02/17 09:00 Enoxaparin [Lovenox] 40 mg SUBCUT DAILY Modafinil [Provigil] 100 mg PO DAILY - Assessment Assessment:: Into visit with Abbey today. Her sister was in the room and discussed prognosis and treatment thus far. Abbey is laying in bed somewhat lethargic although she does respond when asked questions and will put her eyes on command. Physical exam was essentially unremarkable from exam yesterday. We are waiting on MESSAGING ARCHITECT exam to ensure patient can swallow without aspirating. At that time she will resume by mouth medications. We will also consider starting IV fluids unless the patient is able to swallow and rehydrate herself. We will continue to monitor her lab values. Her son lives down south and is attempting to find a way to visit patient. Echo and carotid ultrasound were performed today. We will await those results. She will likely stay through the weekend and will consider discharge next week pending rehabilitation placement. - Plan Plan:: Assessment/Plan: Acute: Stroke - Neglect on left side - Left arm weakness and left foot drop - CT scan in ED was negative - MRI confirms acute irreversible infarct within occipital lobe and posterior parietal lobe - Swallow study done - She is now on thin liquids with National Dysphagia Level 3 diet Muscle Spasm/Fasciculations, Improved - This is related to stroke - Continue Baclofen 10 mg po TID Hyperlipidemia - AHA-ND3 diet - Continue Simvastatin 40 mg po HS Malnutrition/Poor Nutritional State - Emaciated and not well kept - Poor intake due to anatomic and structural changes after her oral/neck surgery - She is w/o dentition or artificial teeth - Dietary consult to improve nutritional status - MESSAGING ARCHITECT following New Onset COPD/Emphysema - Inpatient PFT shows Severe COPD - She is at baseline and not in acute respiratory distress - PRN Bronchodilators and Supplemental O2 Nicotine Abuse/Dependence - Smokes 1 ppd - Nicotine Patch daily Post-Stroke Depression - Fluoxetine 10 mg po HS first dose tonight x 1 only then 20 mg po daily staring in am - Studies show antidepressants may help people move again after stroke ---> may aid in stroke rehab High Fall Risk - She gets up on her own Resolved: Hypomagnesemia - Mg 1.7 - Will replete - Pharmacy to replete and monitor subsequent levels Dizziness - No associated nasal/throat or hearing complaints - More of dys-equilibrium - No room spinning - Dizziness resolved as soon as she got to the floor - No slurred speech or facial droop - Head CT scan: Nothing acute is identified - R/o Stroke: No MRI/MRA services at night - She is still nauseous - She smokes but does not drink ETOH - She denies illicit drug use or Rx drug abuse - Scopolamine patch x1 and Benadryl 50 mg IVP x1 - PRN Meclizine Malignant HTN, Resolved - Stress vs Nicotine Withdrawal - She carries no hx/o HTN - She had SBPs in the 200s per ED notes - She received initial treatment in ED - Continue PRN anti-hypertensive meds S/p Fall - No obvious trauma - Head CT scan shows no acute brain bleed - 1:1 care Plan: She clinically stable-very alert and awake Continue current treatment Routine AM Labs Aspiration/Fall Precautions Continue PT/OT/MESSAGING ARCHITECT SW/CM for d/c planning Additional orders as above Code status: 1 LOS > 96 hrs pending rehab placement
[2017-05-02] MEDS: Famotidine 20 MG/2 ML SDV IVPUSH SCH ×2 (10:08→21:55)
[2017-05-02] MEDS: Modafinil 200 MG Tab PO SCH (10:08)
[2017-05-02] MEDS: Enoxaparin 40 MG/0.4 ML Syringe SUBCUT SCH (10:09)
[2017-05-02] MEDS: Baclofen 10 MG Tab PO SCH ×3 (10:09→21:55)
[2017-05-02] MEDS: Nicotine 21 MG/24 Hr Patch TRDERM SCH (10:09)
[2017-05-02] MEDS: Ondansetron 4 MG/2 ML SDV IV PRN (12:42)
[2017-05-02] MEDS: Acetaminophen 325 MG Tab PO PRN (12:47)
[2017-05-02] MEDS: Acetaminophen/HYDROcodone 325-5 MG Tab PO PRN (16:08)
[2017-05-02] MEDS: FLUoxetine 10 MG Cap PO SCH ×2 (18:17→21:54)
[2017-05-02] MEDS ORDERED: FLUoxetine 20 MG Cap PO SCH (21:00)
[2017-05-02] MEDS: Simvastatin 40 MG Tab PO SCH (21:54)
[2017-05-02] MEDS: Temazepam 15 MG Cap PO PRN (21:57)
[2017-05-03] MEDS: Acetaminophen/HYDROcodone 325-5 MG Tab PO PRN ×2 (06:51→23:27)
[2017-05-03] MEDS: Modafinil 200 MG Tab PO SCH (08:44)
[2017-05-03] MEDS: Baclofen 10 MG Tab PO SCH ×3 (08:44→20:37)
[2017-05-03] MEDS: FLUoxetine 20 MG Cap PO SCH (08:44)
[2017-05-03] MEDS: Enoxaparin 40 MG/0.4 ML Syringe SUBCUT SCH (08:44)
[2017-05-03] MEDS: Famotidine 20 MG/2 ML SDV IVPUSH SCH ×2 (08:44→20:37)
[2017-05-03] MEDS: Nicotine 21 MG/24 Hr Patch TRDERM SCH (08:45)
[2017-05-03] MEDS: Ondansetron 4 MG/2 ML SDV IV PRN (08:45)
--- NOTE | 2017-05-03 09:02 | PCM.PN ---
- General Info Date of Service: 05/03/17 Admission Dx/Problem (Free Text): Admission Diagnosis/Problem Admission Diagnosis/Problem Vertigo Subjective Update: Follow Up Functional Status: Reports: Pain Controlled, Tolerating Diet, Urinating. Denies : New Symptoms - Review of Systems General: Reports: Weakness, Fatigue, Other ("Hurt all over"). Denies: Fever, Chills HEENT: Reports: No Symptoms Pulmonary: Reports: No Symptoms Cardiovascular: Reports: No Symptoms Gastrointestinal: Reports: No Symptoms Genitourinary: Reports: No Symptoms Musculoskeletal: Reports: No Symptoms Skin: Reports: No Symptoms Neurological: Reports: Difficulty Walking (Denies any new symptoms. Reports unable to walk.). Denies: Headache, Numbness Psychiatric: Reports: Depression - Patient Data Vitals - Most Recent: Last Vital Signs Temp 97.3 F 05/03/17 07:47 Pulse 91 05/03/17 03:39 Resp 12 05/03/17 07:47 BP 172/84 H 05/03/17 07:47 Pulse Ox 92 L 05/03/17 03:39 Weight - Most Recent: 108 lb 11.2 oz I&O - Last 24 Hours: Intake & Output 05/02/17 05/03/17 05/03/17 22:59 06:59 14:59 Intake Total 540 800 Balance 540 800 Lab Results Last 24 Hours: Laboratory Results - last 24 hr 05/03/17 05/03/17 Range/Units 06:50 06:50 WBC 5.72 (3.98-10.04) K/mm3 RBC 4.24 (3.98-5.22) M/mm3 Hgb 12.3 (11.2-15.7) gm/L Hct 38.0 (34.1-44.9) % MCV 89.6 (79.4-94.8) fl MCH 29.0 (25.6-32.2) pg MCHC 32.4 (32.2-35.5) g/dl RDW Std Deviation 48.2 H (36.4-46.3) fL Plt Count 239 (182-369) K/mm3 MPV 10.1 (9.4-12.3) fl Neut % (Auto) 78.8 H (34.0-71.1) % Lymph % (Auto) 11.4 L (19.3-51.7) % [place] % (Auto) 7.7 (4.7-12.5) % Eos % (Auto) 1.7 (0.7-5.8) Baso % (Auto) 0.2 (0.1-1.2) % Neut # (Auto) 4.51 (1.56-6.13) K/mm3 Lymph # (Auto) 0.65 L (1.18-3.74) K/mm3 [place] # (Auto) 0.44 H (0.24-0.36) K/mm3 Eos # (Auto) 0.10 (0.04-0.36) K/mm3 Baso # (Auto) 0.01 (0.01-0.08) K/mm3 Manual Slide Review Not Reportable Sodium 137 (136-145) mEq/L Potassium 4.1 (3.5-5.1) mEq/L Chloride 102 (98-107) mEq/L Carbon Dioxide 27 (21-32) mEq/L Anion Gap 12.1 (5-15) BUN 37 H (7-18) mg/dL Creatinine 1.4 H (0.55-1.02) mg/dL Est Cr Clr Drug Dosing 30.26 mL/min Estimated GFR (MDRD) 38 (>60) mL/min BUN/Creatinine Ratio 26.4 H (14-18) Glucose 122 H (80-115) mg/dL Calcium 9.3 (8.5-10.1) mg/dL Magnesium 2.2 (1.8-2.4) mg/dl Med Orders - Current: Current Medications Acetaminophen (Tylenol) 325 mg RECTAL Q4H PRN PRN Reason: Pain/Fever Acetaminophen (Tylenol) 650 mg PO Q4H PRN PRN Reason: Pain Last Admin: 05/02/17 12:47 Dose: 650 mg Hydrocodone Bitart/Acetaminophen ([place] 325-5 Mg) 1 tab PO Q4H PRN PRN Reason: Pain Last Admin: 05/03/17 06:51 Dose: 1 tab Albuterol/Ipratropium (Duoneb 3.0-0.5 Mg/3 Ml) 3 ml NEB Q4H PRN PRN Reason: Shortness Of Breath/wheezing Last Admin: 04/29/17 08:35 Dose: 3 ml Baclofen (Lioresal) 10 mg PO TID [facility] Last Admin: 05/03/17 08:44 Dose: 10 mg Enoxaparin Sodium (Lovenox) 40 mg SUBCUT DAILY [facility] Last Admin: 05/03/17 08:44 Dose: 40 mg Famotidine (Pepcid) 20 mg IVPUSH BID [facility] Last Admin: 05/03/17 08:44 Dose: 20 mg Fluoxetine HCl (Prozac) 10 mg PO BEDTIME [facility] Last Admin: 05/02/17 21:54 Dose: 10 mg Fluoxetine HCl (Prozac) 20 mg PO DAILY [facility] Last Admin: 05/03/17 08:44 Dose: 20 mg Hydralazine HCl (Apresoline) 20 mg IVPUSH Q4H PRN PRN Reason: Hypertension Last Admin: 04/30/17 03:48 Dose: 20 mg Hydromorphone HCl (Dilaudid) 0.5 mg IVPUSH Q4H PRN PRN Reason: Pain (severe 7-10) Promethazine HCl 12.5 mg/ (Sodium Chloride) 50.5 mls @ 100 mls/hr IV Q6H PRN PRN Reason: Nausea/Vomiting Lorazepam (Ativan) 0.5 mg IV Q6H PRN PRN Reason: Anxiety Last Admin: 04/30/17 20:20 Dose: 0.5 mg Magnesium Sulfate (Pharmacy To Dose - Magnesium Replacement) 1 dose .XX ASDIRECTED [facility] Metoprolol Tartrate (Lopressor) 5 mg IVPUSH Q4H PRN PRN Reason: Tachycardia Last Admin: 04/30/17 20:05 Dose: 5 mg Miscellaneous Information (Remove Patch) 0 ea TRDERM DAILY [facility] Last Admin: 05/03/17 08:47 Dose: 1 ea Modafinil (Provigil) 100 mg PO DAILY [facility] Last Admin: 05/03/17 08:44 Dose: 100 mg Nicotine (Habitrol) 21 mg TRDERM DAILY [facility] Last Admin: 05/03/17 08:45 Dose: 21 mg Ondansetron HCl (Zofran) 4 mg IV Q6H PRN PRN Reason: Nausea/Vomiting Last Admin: 05/03/17 08:45 Dose: 4 mg Potassium Chloride (Pharmacy To Dose - Potassium Replacement) 1 dose .XX ASDIRECTED [facility] Simvastatin (Zocor) 40 mg PO BEDTIME [facility] Last Admin: 05/02/17 21:54 Dose: 40 mg Sodium Chloride (Saline Flush) 10 ml FLUSH ASDIRECTED PRN PRN Reason: Keep Vein Open Last Admin: 04/28/17 16:34 Dose: 10 ml Temazepam (Restoril) 15 mg PO BEDTIME PRN PRN Reason: Sleep Last Admin: 05/02/17 21:57 Dose: 15 mg Discontinued Medications Acetaminophen (Tylenol) 650 mg PO Q4H PRN PRN Reason: Pain (Mild 1-3)/fever Acetaminophen (Tylenol) 325 mg RECTAL ONETIME ONE Stop: 04/29/17 14:46 Last Admin: 04/29/17 15:04 Dose: 325 mg Hydrocodone Bitart/Acetaminophen ([place] 325-5 Mg) 1 tab PO Q4H PRN PRN Reason: Pain (moderate 4-6) Aspirin (Ecotrin) 325 mg PO ONETIME ONE Stop: 04/29/17 13:44 Last Admin: 04/29/17 14:53 Dose: Not Given Baclofen (Lioresal) 10 mg PO TID PRN PRN Reason: Other Bisacodyl (Dulcolax) 5 mg PO DAILY PRN PRN Reason: Constipation Clonidine HCl (Catapres) 0.1 mg PO ONETIME ONE Stop: 04/28/17 21:52 Last Admin: 04/28/17 22:21 Dose: 0.1 mg Diphenhydramine HCl (Benadryl) 50 mg IVPUSH ONETIME ONE Stop: 04/28/17 22:09 Last Admin: 04/29/17 00:10 Dose: Not Given Diphenhydramine HCl (Benadryl) 50 mg IVPUSH ONETIME STA Stop: 04/29/17 13:44 Last Admin: 04/29/17 13:45 Dose: 50 mg Diphtheria/Tetanus/Acell Pertussis (Adacel) 0.5 ml IM .ONCE ONE Stop: 04/29/17 09:50 Docusate Sodium (Colace) 100 mg PO BID PRN PRN Reason: Constipation Enalaprilat (Vasotec Iv) 1.25 mg IVPUSH ONETIME ONE Stop: 04/28/17 20:08 Last Admin: 04/28/17 20:16 Dose: 1.25 mg Enoxaparin Sodium (Lovenox) 30 mg SUBCUT DAILY [facility] Last Admin: 05/01/17 09:20 Dose: 30 mg Fluoxetine HCl (Prozac) 20 mg PO BEDTIME [facility] Hydrochlorothiazide (Hydrochlorothiazide) 25 mg PO BIDDIURETIC [facility] Last Admin: 04/29/17 16:05 Dose: Not Given Hydrochlorothiazide (Hydrochlorothiazide) 25 mg PO BIDDIURETIC [facility] Sodium Chloride (Normal Saline) 1,000 mls @ 100 mls/hr IV ONETIME ONE Stop: 04/29/17 02:09 Last Admin: 04/28/17 16:31 Dose: 100 mls/hr Magnesium Sulfate 2 gm/ Premix 50 mls @ 25 mls/hr IV ONETIME ONE Stop: 04/29/17 01:28 Last Admin: 04/29/17 00:02 Dose: 25 mls/hr Magnesium Sulfate 2 gm/ Premix 50 mls @ 50 mls/hr IV ONETIME ONE Stop: 05/01/17 15:44 Last Admin: 05/01/17 17:30 Dose: 50 mls/hr Ketorolac Tromethamine (Toradol) 15 mg IVPUSH ONETIME ONE Stop: 04/28/17 18:07 Last Admin: 04/28/17 18:21 Dose: 15 mg Lorazepam (Ativan) 1.5 mg IVPUSH ONETIME ONE Stop: 04/29/17 13:25 Last Admin: 04/29/17 13:30 Dose: 1.5 mg Meclizine HCl (Antivert) 25 mg PO ONETIME ONE Stop: 04/28/17 18:07 Last Admin: 04/28/17 18:24 Dose: 25 mg Meclizine HCl (Antivert) 25 mg PO Q6H PRN PRN Reason: Dizziness Miscellaneous Information (Remove Patch) 1 ea TRDERM ONETIME ONE Stop: 05/01/17 21:01 Last Admin: 05/01/17 20:43 Dose: 1 ea Modafinil (Provigil) 100 mg PO ONETIME ONE Stop: 04/30/17 15:01 Last Admin: 04/30/17 18:40 Dose: Not Given Modafinil (Provigil) 100 mg PO NOW STA Stop: 04/30/17 17:53 Last Admin: 04/30/17 18:40 Dose: 100 mg Morphine Sulfate (Morphine) 1 mg IVPUSH Q4H PRN PRN Reason: Other Stop: 04/29/17 23:18 Nicotine (Habitrol) 21 mg TRDERM ONETIME ONE Stop: 04/28/17 19:56 Last Admin: 04/28/17 20:14 Dose: 21 mg Ondansetron HCl (Zofran) 4 mg IVPUSH ONETIME ONE Stop: 04/28/17 18:07 Last Admin: 04/28/17 18:17 Dose: 4 mg Polyethylene Glycol (Miralax) 17 gm PO DAILY PRN PRN Reason: Constipation Scopolamine (Transderm-Scop) 1.5 mg TOP ONETIME ONE Stop: 04/28/17 21:01 Last Admin: 04/28/17 22:21 Dose: 1.5 mg Senna/Docusate Sodium (Senna Plus) 1 tab PO BID PRN PRN Reason: Constipation Temazepam (Restoril) 7.5 mg PO BEDTIME PRN PRN Reason: Sleep - Exam Quality Assessment: DVT Prophylaxis. No: Supplemental Oxygen General: Alert, Oriented, Cooperative HEENT: Pupils Equal, Pupils Reactive, Mucous Membr. Moist/[place] Neck: Supple, Trachea Midline, No JVD Lungs: Clear to Auscultation, Normal Respiratory Effort Cardiovascular: Regular Rate, Regular Rhythm, No Murmurs GI/Abdominal Exam: Normal Bowel Sounds, Soft, Non-Tender, No Distention, No Mass (Female) Exam: Deferred Back Exam: Normal Inspection, Decreased Range of Motion Extremities: Normal Inspection, No Pedal Edema, Normal Capillary Refill, Limited Range of Motion, Other (Unable to move left leg. Bruising on extremities.) Peripheral Pulses: 2+: Radial (L), Radial (R), Posterior Tibial (L), Posterior Tibial (R), Dorsalis Pedis (L), Dorsalis Pedis (R) Skin: Warm, Dry, Intact, Ecchymosis Neurological: Strength Equal Bilateral, Reflexes Equal Bilateral, Sensation Intact, Cranial Nerves Intact, Other (Unable to move left leg) Psy/Mental Status: Alert, Depressed. No: Agitated, Suicidal Ideation, Homicidal Ideation - Problem List & Annotations (1) Stroke SNOMED Code(s): 386916023 Code(s): I63.9 - CEREBRAL INFARCTION, UNSPECIFIED Status: Acute Priority : High Current Visit: Yes Qualifiers: CVA mechanism: unspecified Qualified Code(s): I63.9 - Cerebral infarction, unspecified (2) Pavel-neglect of left side SNOMED Code(s): 400447879 Code(s): R41.4 - NEUROLOGIC NEGLECT SYNDROME Status: Acute Priority: High Current Visit: Yes (3) Weakness SNOMED Code(s): 32110830 Code(s): R53.1 - WEAKNESS Status: Acute Priority: High Current Visit: Yes (4) Abdominal pain SNOMED Code(s): 36577999 Code(s): R10.9 - UNSPECIFIED ABDOMINAL PAIN Status: Acute Priority: Medium Current Visit: No - Problem List Review Problem List Initiated/Reviewed/Updated: Yes - My Orders Last 24 Hours: My Active Orders 05/04/17 06:35 BASIC METABOLIC PANEL,BMP [CHEM] DAILY MAGNESIUM [CHEM] DAILY 05/04/17 06:45 CBC WITH AUTO DIFF [HEME] DAILY 05/05/17 06:35 BASIC METABOLIC PANEL,BMP [CHEM] DAILY MAGNESIUM [CHEM] DAILY 05/05/17 06:45 CBC WITH AUTO DIFF [HEME] DAILY - Assessment Assessment:: In to visit with Abbey today. She is lying in bed and alert. She responds appropriately to questions. She reports that she is unable to walk. She is alone in the room. She had reportedly fallen out of bed over the weekend and was subsequently moved closer to the nurse's station. There is some bruising noted and a wound to the left elbow. Overall her exam is essentially unchanged from the weekend. She will remain here pending rehabilitation placement. - Plan Plan:: Assessment/Plan: Acute: Stroke - Neglect on left side - Left arm weakness and left foot drop - CT scan in ED was negative - MRI confirms acute irreversible infarct within occipital lobe and posterior parietal lobe - Swallow study done - She is now on thin liquids with National Dysphagia Level 3 diet Muscle Spasm/Fasciculations, Improved - This is related to stroke - Continue Baclofen 10 mg po TID Hyperlipidemia - AHA-ND3 diet - Continue Simvastatin 40 mg po HS Malnutrition/Poor Nutritional State - Emaciated and not well kept - Poor intake due to anatomic and structural changes after her oral/neck surgery - She is w/o dentition or artificial teeth - Dietary consult to improve nutritional status - INSURANCE APPLICATION INVESTIGATOR following New Onset COPD/Emphysema - Inpatient PFT shows Severe COPD - She is at baseline and not in acute respiratory distress - PRN Bronchodilators and Supplemental O2 Nicotine Abuse/Dependence - Smokes 1 ppd - Nicotine Patch daily Post-Stroke Depression - Fluoxetine 10 mg po HS first dose tonight x 1 only then 20 mg po daily staring in am - Studies show antidepressants may help people move again after stroke ---> may aid in stroke rehab High Fall Risk - She gets up on her own - Fall precautions in place Resolved: Hypomagnesemia - Mg 1.7 - Will replete - Pharmacy to replete and monitor subsequent levels Dizziness - No associated nasal/throat or hearing complaints - More of dys-equilibrium - No room spinning - Dizziness resolved as soon as she got to the floor - No slurred speech or facial droop - Head CT scan: Nothing acute is identified - R/o Stroke: No MRI/MRA services at night - She is still nauseous - She smokes but does not drink ETOH - She denies illicit drug use or Rx drug abuse - Scopolamine patch x1 and Benadryl 50 mg IVP x1 - PRN Meclizine Malignant HTN, Resolved - Stress vs Nicotine Withdrawal - She carries no hx/o HTN - She had SBPs in the 200s per ED notes - She received initial treatment in ED - Continue PRN anti-hypertensive meds S/p Fall - No obvious trauma - Head CT scan shows no acute brain bleed - 1:1 care Plan: She clinically stable-very alert and awake Continue current treatment Routine AM Labs Aspiration/Fall Precautions Continue PT/OT/INSURANCE APPLICATION INVESTIGATOR SW/CM for d/c planning Additional orders as above Code status: 1 LOS > 96 hrs pending rehab placement
[2017-05-03] MEDS ORDERED: Metoclopramide 10 MG/2 ML SDV IVPUSH PRN (11:05)
--- NOTE | 2017-05-03 11:21 | PCM.DCSUM1 ---
Discharge Summary - Hospital Course HPI Initial Comments: This is a 67 year old elderly white female who looks older than her stated age with no significant past medical history who comes to the emergency department for evaluation of multiple complaints: Weakness, dizziness, nausea and headache. Per patient all her symptoms started early this morning while she was at rest. She denies doing anything out of the ordinary. She denies using illicit drugs or abusing prescription drugs. She denies alcohol use. She describes her dizziness as false sense of equilibrium. She reports no sense of room spinning. Her dizziness is aggravated by abrupt movement and associated with some left numbness and tingling of her arm. She denies any other symptoms. 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 She is still an active smoker and smoked one pack a day. Her initial workup in the emergency department shows an unremarkable CBC. Her chemistry is remarkable for magnesium 1.7. Her UA is negative for UTI. Chest x-ray shows hyperinflated lungs. Head CT scan shows no acute intra- cranial abnormality. Patient was admitted for medical management of disequilibrium. She is full code. CT scan from ER was reviewed and found to show nothing acute. While in to see patient it is noted that she has fairly significant left-sided weakness. She is able to move all extremities and responds appropriately to commands. However, when sitting up she does slump towards her left side. Equal dye weigher helper strength noted. It is somewhat difficult to examine for facial droop as patient has had her mandible resected. PT/OT had also noted difficulty with the patient utilizing her left side when walking. Speech appears normal and the patient is not confused, although this is difficult to engineering technician parking given her previous mandibular resection. Because of this I ordered an MRI/MRA of the brain and neck. Unfortunately, the patient was only scheduled to have her MRI at 1500. MRI was contacted and after some debate they were agreeable to take the patient back for a stat MRI. Unfortunately the patient did not tolerate the MRI well. She continues to move around even after attempts at sedation. The electrical tech/project manager did note an area of concern even with the poor diagnostic quality images. I contacted neurosurgery in [place], as we have had some success in the past with them accepting patients for clot removal. Dr. Woods was paged. MRI and CT from yesterday were passed through to him. As suspected, patient was outside of treatment window. He reported that there is nothing that they would do for her acutely in [place] as she is not a surgical candidate, nor is she a candidate for TPA. He did offer that the patient could be sent to them or be admitted to neurology closer to [place]. He also stated that the patient could likely remain in our hospital for monitoring and ultimately rehabilitation. Stat read on the MRI by Dr. Saenz reports "Findings compatible fairly acute but irreversible infarct with the occipital lobe extending into the insular cortex. This is an area of previous infarct and findings felt compatible with extension of the area of the old infarct." Other scenescent changes were also noted. Abbey took sometime to fully wake up from sedation. Relaxants were given to stop the spastic activity. She is now alert and oriented however somewhat depressed. Antidepressants were started. She has equal dye weigher helper strength bilaterally with her hands however she is unable to move her left leg. She reports no sensation in her left leg. She was started on a statin. Speech therapy was in to see her and started on a national dysphagia diet. Carotid artery ultrasound showed a right external carotid with greater than 50% both internal carotid showed stenosis of 1-49%. An echo was done and we are awaiting results. A CT scan was performed after the patient attempted to get out of bed and fell. This showed "1.evolving right infarct within the posterior right parietal and occipital region. Superimposed old infarct is seen within the posterior right parietal region. 2. Old lacunar infarcts in the basal ganglia. 3. No acute intracranial hemorrhages seen." She'll be discharged today to [facility] for rehabilitation. - Discharge Data Discharge Date: 05/03/17 (Admit date: 04/28/17) Discharge Disposition: DC/Tfer to SNF 03 Condition: Fair - Discharge Diagnosis/Problem(s) (1) Stroke SNOMED Code(s): 110007394 ICD Code: I63.9 - CEREBRAL INFARCTION, UNSPECIFIED Status: Acute Priority : High Current Visit: Yes Qualifiers: CVA mechanism: unspecified Qualified Code(s): I63.9 - Cerebral infarction, unspecified (2) Pavel-neglect of left side SNOMED Code(s): 459941145 ICD Code: R41.4 - NEUROLOGIC NEGLECT SYNDROME Status: Acute Priority: High Current Visit: Yes (3) Weakness SNOMED Code(s): 74149681 ICD Code: R53.1 - WEAKNESS Status: Acute Priority: High Current Visit: Yes (4) Abdominal pain SNOMED Code(s): 36381367 ICD Code: R10.9 - UNSPECIFIED ABDOMINAL PAIN Status: Acute Priority: Medium Current Visit: No - Patient Summary/Data Consults: Consultations 04/28/17 23:20 Consult to Case Management [CONS] Routine Consult to Wheel And Pinion Inspector [CONS] Routine Consult to Tiler [CONS] Routine Consult to Spiritual Care [CONS] Routine OT Evaluation and Treatment [CONS] Routine PT Evaluation and Treatment [CONS] Routine Respiratory Care Assess and Treatment [CONS] Routine 04/29/17 19:34 Consult to Speech Language Pathology [ELEVATOR SERVICE MECHANIC Evaluation and Treatment] [CONS] Routine - Patient Instructions Diet: Heart Healthy Diet Activity: As Tolerated Driving: Do Not Drive Showering/Bathing: May Shower Notify Provider of: Fever, Increased Pain, Nausea and/or Vomiting - Discharge Plan Prescriptions/Med Rec: Baclofen [Lioresal] 10 mg PO TID #90 tablet FLUoxetine [PROzac] 20 mg PO DAILY #30 cap Nicotine [Habitrol] 21 mg TRDERM DAILY #7 patch Simvastatin [Zocor] 40 mg PO BEDTIME #30 tablet Home Medications: Home Meds Acetaminophen [Tylenol] 650 mg PO Q4H PRN tablet 05/03/17 [Rx] Baclofen [Lioresal] 10 mg PO TID #90 tablet 05/03/17 [Rx] FLUoxetine [PROzac] 20 mg PO DAILY #30 cap 05/03/17 [Rx] Nicotine [Habitrol] 21 mg TRDERM DAILY #7 patch 05/03/17 [Rx] Simvastatin [Zocor] 40 mg PO BEDTIME #30 tablet 05/03/17 [Rx] Patient Handouts: Fall Prevention in the Home, [id number], Smoking Hazards, Stroke Prevention, [id number], Chronic Obstructive Pulmonary Disease, Easy-to- Read, Smoking Cessation, Tips for Success, Tobacco Use Disorder Forms: ED Department Discharge Referrals: Abelino Trivedi MD [Primary Care Provider] - - Discharge Summary/Plan Comment DC Time >30 min.: Yes (45) - General Info Admission Dx/Problem (Free Text: Admission Diagnosis/Problem Admission Diagnosis/Problem Vertigo Subjective Update: Follow Up Functional Status: Reports: Pain Controlled, Tolerating Diet, Ambulating, Urinating. Denies: New Symptoms - Review of Systems General: Reports: Weakness, Fatigue. Denies: Fever, Chills HEENT: Reports: Visual Changes (left negled - stable from admission). Denies: Ear Pain, Eye Pain, Headaches Pulmonary: Reports: No Symptoms Cardiovascular: Reports: No Symptoms Gastrointestinal: Reports: No Symptoms Genitourinary: Reports: No Symptoms Musculoskeletal: Reports: No Symptoms Skin: Reports: No Symptoms Neurological: Reports: No Symptoms Psychiatric: Reports: Depression. Denies: Confusion, Agitation Systems Review Comment: She reports she "hurts all over. - Patient Data Vitals - Most Recent: Last Vital Signs Temp 97.3 F 05/03/17 09:36 Pulse 97 05/03/17 09:39 Resp 16 05/03/17 09:36 BP 140/70 05/03/17 09:39 Pulse Ox 92 L 05/03/17 09:39 Weight - Most Recent: 108 lb 11.2 oz I&O - Last 24 hours: Intake & Output 05/02/17 05/03/17 05/03/17 22:59 06:59 14:59 Intake Total 540 800 0 Balance 540 800 0 Lab Results - Last 24 hrs: Laboratory Results - last 24 hr 05/03/17 05/03/17 Range/Units 06:50 06:50 WBC 5.72 (3.98-10.04) K/mm3 RBC 4.24 (3.98-5.22) M/mm3 Hgb 12.3 (11.2-15.7) gm/L Hct 38.0 (34.1-44.9) % MCV 89.6 (79.4-94.8) fl MCH 29.0 (25.6-32.2) pg MCHC 32.4 (32.2-35.5) g/dl RDW Std Deviation 48.2 H (36.4-46.3) fL Plt Count 239 (182-369) K/mm3 MPV 10.1 (9.4-12.3) fl Neut % (Auto) 78.8 H (34.0-71.1) % Lymph % (Auto) 11.4 L (19.3-51.7) % [place] % (Auto) 7.7 (4.7-12.5) % Eos % (Auto) 1.7 (0.7-5.8) Baso % (Auto) 0.2 (0.1-1.2) % Neut # (Auto) 4.51 (1.56-6.13) K/mm3 Lymph # (Auto) 0.65 L (1.18-3.74) K/mm3 [place] # (Auto) 0.44 H (0.24-0.36) K/mm3 Eos # (Auto) 0.10 (0.04-0.36) K/mm3 Baso # (Auto) 0.01 (0.01-0.08) K/mm3 Manual Slide Review Not Reportable Sodium 137 (136-145) mEq/L Potassium 4.1 (3.5-5.1) mEq/L Chloride 102 (98-107) mEq/L Carbon Dioxide 27 (21-32) mEq/L Anion Gap 12.1 (5-15) BUN 37 H (7-18) mg/dL Creatinine 1.4 H (0.55-1.02) mg/dL Est Cr Clr Drug Dosing 30.26 mL/min Estimated GFR (MDRD) 38 (>60) mL/min BUN/Creatinine Ratio 26.4 H (14-18) Glucose 122 H (80-115) mg/dL Calcium 9.3 (8.5-10.1) mg/dL Magnesium 2.2 (1.8-2.4) mg/dl Med Orders - Current: Current Medications Acetaminophen (Tylenol) 325 mg RECTAL Q4H PRN PRN Reason: Pain/Fever Acetaminophen (Tylenol) 650 mg PO Q4H PRN PRN Reason: Pain Last Admin: 05/02/17 12:47 Dose: 650 mg Hydrocodone Bitart/Acetaminophen ([place] 325-5 Mg) 1 tab PO Q4H PRN PRN Reason: Pain Last Admin: 05/03/17 06:51 Dose: 1 tab Albuterol/Ipratropium (Duoneb 3.0-0.5 Mg/3 Ml) 3 ml NEB Q4H PRN PRN Reason: Shortness Of Breath/wheezing Last Admin: 04/29/17 08:35 Dose: 3 ml Baclofen (Lioresal) 10 mg PO TID PENDING SALE TO [facility] Last Admin: 05/03/17 08:44 Dose: 10 mg Enoxaparin Sodium (Lovenox) 40 mg SUBCUT DAILY PENDING SALE TO [facility] Last Admin: 05/03/17 08:44 Dose: 40 mg Famotidine (Pepcid) 20 mg IVPUSH BID PENDING SALE TO [facility] Last Admin: 05/03/17 08:44 Dose: 20 mg Fluoxetine HCl (Prozac) 20 mg PO DAILY PENDING SALE TO [facility] Last Admin: 05/03/17 08:44 Dose: 20 mg Hydralazine HCl (Apresoline) 20 mg IVPUSH Q4H PRN PRN Reason: Hypertension Last Admin: 04/30/17 03:48 Dose: 20 mg Hydromorphone HCl (Dilaudid) 0.5 mg IVPUSH Q4H PRN PRN Reason: Pain (severe 7-10) Promethazine HCl 12.5 mg/ (Sodium Chloride) 50.5 mls @ 100 mls/hr IV Q6H PRN PRN Reason: Nausea/Vomiting Lorazepam (Ativan) 0.5 mg IV Q6H PRN PRN Reason: Anxiety Last Admin: 04/30/17 20:20 Dose: 0.5 mg Magnesium Sulfate (Pharmacy To Dose - Magnesium Replacement) 1 dose .XX ASDIRECTED PENDING SALE TO [facility] Metoclopramide HCl (Reglan) 5 mg IVPUSH Q6H PRN PRN Reason: Nausea Metoprolol Tartrate (Lopressor) 5 mg IVPUSH Q4H PRN PRN Reason: Tachycardia Last Admin: 04/30/17 20:05 Dose: 5 mg Miscellaneous Information (Remove Patch) 0 ea TRDERM DAILY PENDING SALE TO [facility] Last Admin: 05/03/17 08:47 Dose: 1 ea Nicotine (Habitrol) 21 mg TRDERM DAILY PENDING SALE TO [facility] Last Admin: 05/03/17 08:45 Dose: 21 mg Ondansetron HCl (Zofran) 4 mg IV Q6H PRN PRN Reason: Nausea/Vomiting Last Admin: 05/03/17 08:45 Dose: 4 mg Potassium Chloride (Pharmacy To Dose - Potassium Replacement) 1 dose .XX ASDIRECTED PENDING SALE TO [facility] Simvastatin (Zocor) 40 mg PO BEDTIME PENDING SALE TO [facility] Last Admin: 05/02/17 21:54 Dose: 40 mg Sodium Chloride (Saline Flush) 10 ml FLUSH ASDIRECTED PRN PRN Reason: Keep Vein Open Last Admin: 04/28/17 16:34 Dose: 10 ml Temazepam (Restoril) 15 mg PO BEDTIME PRN PRN Reason: Sleep Last Admin: 05/02/17 21:57 Dose: 15 mg Discontinued Medications Acetaminophen (Tylenol) 650 mg PO Q4H PRN PRN Reason: Pain (Mild 1-3)/fever Acetaminophen (Tylenol) 325 mg RECTAL ONETIME ONE Stop: 04/29/17 14:46 Last Admin: 04/29/17 15:04 Dose: 325 mg Hydrocodone Bitart/Acetaminophen ([place] 325-5 Mg) 1 tab PO Q4H PRN PRN Reason: Pain (moderate 4-6) Aspirin (Ecotrin) 325 mg PO ONETIME ONE Stop: 04/29/17 13:44 Last Admin: 04/29/17 14:53 Dose: Not Given Baclofen (Lioresal) 10 mg PO TID PRN PRN Reason: Other Bisacodyl (Dulcolax) 5 mg PO DAILY PRN PRN Reason: Constipation Clonidine HCl (Catapres) 0.1 mg PO ONETIME ONE Stop: 04/28/17 21:52 Last Admin: 04/28/17 22:21 Dose: 0.1 mg Diphenhydramine HCl (Benadryl) 50 mg IVPUSH ONETIME ONE Stop: 04/28/17 22:09 Last Admin: 04/29/17 00:10 Dose: Not Given Diphenhydramine HCl (Benadryl) 50 mg IVPUSH ONETIME STA Stop: 04/29/17 13:44 Last Admin: 04/29/17 13:45 Dose: 50 mg Diphtheria/Tetanus/Acell Pertussis (Adacel) 0.5 ml IM .ONCE ONE Stop: 04/29/17 09:50 Docusate Sodium (Colace) 100 mg PO BID PRN PRN Reason: Constipation Enalaprilat (Vasotec Iv) 1.25 mg IVPUSH ONETIME ONE Stop: 04/28/17 20:08 Last Admin: 04/28/17 20:16 Dose: 1.25 mg Enoxaparin Sodium (Lovenox) 30 mg SUBCUT DAILY [place] Last Admin: 05/01/17 09:20 Dose: 30 mg Fluoxetine HCl (Prozac) 20 mg PO BEDTIME [place] Fluoxetine HCl (Prozac) 10 mg PO BEDTIME [place] Last Admin: 05/02/17 21:54 Dose: 10 mg Hydrochlorothiazide (Hydrochlorothiazide) 25 mg PO BIDDIURETIC MILDRED Last Admin: 04/29/17 16:05 Dose: Not Given Hydrochlorothiazide (Hydrochlorothiazide) 25 mg PO BIDDIURETIC MILDRED Sodium Chloride (Normal Saline) 1,000 mls @ 100 mls/hr IV ONETIME ONE Stop: 04/29/17 02:09 Last Admin: 04/28/17 16:31 Dose: 100 mls/hr Magnesium Sulfate 2 gm/ Premix 50 mls @ 25 mls/hr IV ONETIME ONE Stop: 04/29/17 01:28 Last Admin: 04/29/17 00:02 Dose: 25 mls/hr Magnesium Sulfate 2 gm/ Premix 50 mls @ 50 mls/hr IV ONETIME ONE Stop: 05/01/17 15:44 Last Admin: 05/01/17 17:30 Dose: 50 mls/hr Ketorolac Tromethamine (Toradol) 15 mg IVPUSH ONETIME ONE Stop: 04/28/17 18:07 Last Admin: 04/28/17 18:21 Dose: 15 mg Lorazepam (Ativan) 1.5 mg IVPUSH ONETIME ONE Stop: 04/29/17 13:25 Last Admin: 04/29/17 13:30 Dose: 1.5 mg Meclizine HCl (Antivert) 25 mg PO ONETIME ONE Stop: 04/28/17 18:07 Last Admin: 04/28/17 18:24 Dose: 25 mg Meclizine HCl (Antivert) 25 mg PO Q6H PRN PRN Reason: Dizziness Miscellaneous Information (Remove Patch) 1 ea TRDERM ONETIME ONE Stop: 05/01/17 21:01 Last Admin: 05/01/17 20:43 Dose: 1 ea Modafinil (Provigil) 100 mg PO ONETIME ONE Stop: 04/30/17 15:01 Last Admin: 04/30/17 18:40 Dose: Not Given Modafinil (Provigil) 100 mg PO NOW STA Stop: 04/30/17 17:53 Last Admin: 04/30/17 18:40 Dose: 100 mg Modafinil (Provigil) 100 mg PO DAILY MILDRED Last Admin: 05/03/17 08:44 Dose: 100 mg Morphine Sulfate (Morphine) 1 mg IVPUSH Q4H PRN PRN Reason: Other Stop: 04/29/17 23:18 Nicotine (Habitrol) 21 mg TRDERM ONETIME ONE Stop: 04/28/17 19:56 Last Admin: 04/28/17 20:14 Dose: 21 mg Ondansetron HCl (Zofran) 4 mg IVPUSH ONETIME ONE Stop: 04/28/17 18:07 Last Admin: 04/28/17 18:17 Dose: 4 mg Polyethylene Glycol (Miralax) 17 gm PO DAILY PRN PRN Reason: Constipation Scopolamine (Transderm-Scop) 1.5 mg TOP ONETIME ONE Stop: 04/28/17 21:01 Last Admin: 04/28/17 22:21 Dose: 1.5 mg Senna/Docusate Sodium (Senna Plus) 1 tab PO BID PRN PRN Reason: Constipation Temazepam (Restoril) 7.5 mg PO BEDTIME PRN PRN Reason: Sleep - Exam Quality Assessment: Reports: DVT Prophylaxis General: Reports: Alert, Oriented, Cooperative HEENT: Reports: Pupils Equal, Pupils Reactive, Mucous Membr. Moist/[place] Neck: Reports: Supple, Trachea Midline, No JVD Lungs: Reports: Clear to Auscultation, Normal Respiratory Effort Cardiovascular: Reports: Regular Rate, Regular Rhythm GI/Abdominal Exam: Normal Bowel Sounds, Soft, Non-Tender, No Organomegaly, No Distention (Female) Exam: Deferred Rectal (Female) Exam: Deferred Back Exam: Reports: Normal Inspection, Decreased Range of Motion Extremities: Normal Inspection, Non-Tender, No Pedal Edema, Other (Bruising noted throughout ) Skin: Reports: Warm, Dry, Intact, Ecchymosis Neurological: Reports: Normal Speech, Sensation Intact. Denies: Normal Gait, Strength Equal Bilateral (Strength equal bilaterally in arms. Left leg unable to.) Psy/Mental Status: Reports: Alert, Depressed. Denies: Agitated, Homicidal Ideation, Hallucinations Physical Findings Comments:: She essentially unchanged since yesterday. *Q Meaningful Use (DIS) - VTE *Q VTE Criteria *Q: - Stroke *Q Stroke Criteria *Q: - AMI *Q AMI Criteria *Q:
[2017-05-03] MEDS: hydrALAZINE 20 MG/ML SDV IVPUSH PRN (15:46)
[2017-05-03] MEDS: Metoprolol Tartrate 5 MG/5 ML SDV IVPUSH PRN (20:27)
[2017-05-03] MEDS: Simvastatin 40 MG Tab PO SCH (20:37)
[2017-05-04] MEDS: Nicotine 21 MG/24 Hr Patch TRDERM SCH (10:37)
[2017-05-04] MEDS: Enoxaparin 40 MG/0.4 ML Syringe SUBCUT SCH (10:39)
[2017-05-04] MEDS: Famotidine 20 MG/2 ML SDV IVPUSH SCH ×2 (10:39→21:20)
[2017-05-04] MEDS: FLUoxetine 20 MG Cap PO SCH (10:49)
[2017-05-04] MEDS: Baclofen 10 MG Tab PO SCH ×3 (10:49→21:20)
[2017-05-04] MEDS ORDERED: Bisacodyl 10 MG Supp RECTAL ONE (11:25)
--- NOTE | 2017-05-04 12:51 | PCM.PN ---
- General Info Date of Service: 05/04/17 Admission Dx/Problem (Free Text): Admission Diagnosis/Problem Admission Diagnosis/Problem Vertigo Subjective Update: Follow Up Functional Status: Reports: Tolerating Diet, Urinating. Denies: Ambulating, New Symptoms - Review of Systems General: Reports: Weakness, Other (reports "hurting all over"). Denies: Chills HEENT: Reports: No Symptoms Pulmonary: Reports: No Symptoms Cardiovascular: Reports: No Symptoms Gastrointestinal: Reports: No Symptoms Genitourinary: Reports: No Symptoms Musculoskeletal: Reports: No Symptoms Skin: Reports: No Symptoms Neurological: Reports: Trouble Speaking, Difficulty Walking, Weakness, Gait Disturbance Psychiatric: Reports: Depression. Denies: Confusion, Anxiety, Agitation, Hallucinations, Suicidal Ideation - Patient Data Vitals - Most Recent: Last Vital Signs Temp 98.2 F 05/04/17 07:50 Pulse 72 05/04/17 10:35 Resp 12 05/04/17 07:50 BP 105/63 05/04/17 07:50 Pulse Ox 96 05/04/17 10:35 Weight - Most Recent: 106 lb 12.8 oz I&O - Last 24 Hours: Intake & Output 05/03/17 05/04/17 05/04/17 22:59 06:59 14:59 Intake Total 320 120 0 Balance 320 120 0 Lab Results Last 24 Hours: Laboratory Results - last 24 hr 05/04/17 05/04/17 Range/Units 05:50 05:50 WBC 6.26 (3.98-10.04) K/mm3 RBC 4.27 (3.98-5.22) M/mm3 Hgb 12.3 (11.2-15.7) gm/L Hct 38.8 (34.1-44.9) % MCV 90.9 (79.4-94.8) fl MCH 28.8 (25.6-32.2) pg MCHC 31.7 L (32.2-35.5) g/dl RDW Std Deviation 49.3 H (36.4-46.3) fL Plt Count 237 (182-369) K/mm3 MPV 10.7 (9.4-12.3) fl Neut % (Auto) 76.7 H (34.0-71.1) % Lymph % (Auto) 8.6 L (19.3-51.7) % [place] % (Auto) 11.2 (4.7-12.5) % Eos % (Auto) 3.0 (0.7-5.8) Baso % (Auto) 0.2 (0.1-1.2) % Neut # (Auto) 4.80 (1.56-6.13) K/mm3 Lymph # (Auto) 0.54 L (1.18-3.74) K/mm3 [place] # (Auto) 0.70 H (0.24-0.36) K/mm3 Eos # (Auto) 0.19 (0.04-0.36) K/mm3 Baso # (Auto) 0.01 (0.01-0.08) K/mm3 Manual Slide Review Abnormal smear Sodium 140 (136-145) mEq/L Potassium 4.5 (3.5-5.1) mEq/L Chloride 102 (98-107) mEq/L Carbon Dioxide 30 (21-32) mEq/L Anion Gap 12.5 (5-15) BUN 31 H (7-18) mg/dL Creatinine 1.3 H (0.55-1.02) mg/dL Est Cr Clr Drug Dosing 32.59 mL/min Estimated GFR (MDRD) 41 (>60) mL/min BUN/Creatinine Ratio 23.8 H (14-18) Glucose 102 (80-115) mg/dL Calcium 9.2 (8.5-10.1) mg/dL Magnesium 2.1 (1.8-2.4) mg/dl Med Orders - Current: Current Medications Acetaminophen (Tylenol) 325 mg RECTAL Q4H PRN PRN Reason: Pain/Fever Acetaminophen (Tylenol) 650 mg PO Q4H PRN PRN Reason: Pain Last Admin: 05/02/17 12:47 Dose: 650 mg Hydrocodone Bitart/Acetaminophen ([place] 325-5 Mg) 1 tab PO Q4H PRN PRN Reason: Pain Last Admin: 05/03/17 23:27 Dose: 1 tab Albuterol/Ipratropium (Duoneb 3.0-0.5 Mg/3 Ml) 3 ml NEB Q4H PRN PRN Reason: Shortness Of Breath/wheezing Last Admin: 04/29/17 08:35 Dose: 3 ml Baclofen (Lioresal) 10 mg PO TID [facility] Last Admin: 05/04/17 10:49 Dose: Not Given Enoxaparin Sodium (Lovenox) 40 mg SUBCUT DAILY [facility] Last Admin: 05/04/17 10:39 Dose: 40 mg Famotidine (Pepcid) 20 mg IVPUSH BID [facility] Last Admin: 05/04/17 10:39 Dose: 20 mg Fluoxetine HCl (Prozac) 20 mg PO DAILY [facility] Last Admin: 05/04/17 10:49 Dose: Not Given Hydralazine HCl (Apresoline) 20 mg IVPUSH Q4H PRN PRN Reason: Hypertension Last Admin: 05/03/17 15:46 Dose: 20 mg Hydromorphone HCl (Dilaudid) 0.5 mg IVPUSH Q4H PRN PRN Reason: Pain (severe 7-10) Promethazine HCl 12.5 mg/ (Sodium Chloride) 50.5 mls @ 100 mls/hr IV Q6H PRN PRN Reason: Nausea/Vomiting Lorazepam (Ativan) 0.5 mg IV Q6H PRN PRN Reason: Anxiety Last Admin: 04/30/17 20:20 Dose: 0.5 mg Magnesium Sulfate (Pharmacy To Dose - Magnesium Replacement) 1 dose .XX ASDIRECTED [facility] Metoclopramide HCl (Reglan) 5 mg IVPUSH Q6H PRN PRN Reason: Nausea Metoprolol Tartrate (Lopressor) 5 mg IVPUSH Q4H PRN PRN Reason: Tachycardia Last Admin: 05/03/17 20:27 Dose: 5 mg Miscellaneous Information (Remove Patch) 0 ea TRDERM DAILY [facility] Last Admin: 05/04/17 10:40 Dose: 1 ea Modafinil (Provigil) 100 mg PO DAILY [facility] Nicotine (Habitrol) 21 mg TRDERM DAILY [facility] Last Admin: 05/04/17 10:37 Dose: 21 mg Ondansetron HCl (Zofran) 4 mg IV Q6H PRN PRN Reason: Nausea/Vomiting Last Admin: 05/03/17 08:45 Dose: 4 mg Potassium Chloride (Pharmacy To Dose - Potassium Replacement) 1 dose .XX ASDIRECTED [facility] Simvastatin (Zocor) 40 mg PO BEDTIME [facility] Last Admin: 05/03/17 20:37 Dose: 40 mg Sodium Chloride (Saline Flush) 10 ml FLUSH ASDIRECTED PRN PRN Reason: Keep Vein Open Last Admin: 04/28/17 16:34 Dose: 10 ml Temazepam (Restoril) 15 mg PO BEDTIME PRN PRN Reason: Sleep Last Admin: 05/02/17 21:57 Dose: 15 mg Discontinued Medications Acetaminophen (Tylenol) 650 mg PO Q4H PRN PRN Reason: Pain (Mild 1-3)/fever Acetaminophen (Tylenol) 325 mg RECTAL ONETIME ONE Stop: 04/29/17 14:46 Last Admin: 04/29/17 15:04 Dose: 325 mg Hydrocodone Bitart/Acetaminophen ([place] 325-5 Mg) 1 tab PO Q4H PRN PRN Reason: Pain (moderate 4-6) Aspirin (Ecotrin) 325 mg PO ONETIME ONE Stop: 04/29/17 13:44 Last Admin: 04/29/17 14:53 Dose: Not Given Baclofen (Lioresal) 10 mg PO TID PRN PRN Reason: Other Bisacodyl (Dulcolax) 5 mg PO DAILY PRN PRN Reason: Constipation Bisacodyl (Dulcolax) 10 mg RECTAL ONETIME ONE Stop: 05/04/17 11:26 Clonidine HCl (Catapres) 0.1 mg PO ONETIME ONE Stop: 04/28/17 21:52 Last Admin: 04/28/17 22:21 Dose: 0.1 mg Diphenhydramine HCl (Benadryl) 50 mg IVPUSH ONETIME ONE Stop: 04/28/17 22:09 Last Admin: 04/29/17 00:10 Dose: Not Given Diphenhydramine HCl (Benadryl) 50 mg IVPUSH ONETIME STA Stop: 04/29/17 13:44 Last Admin: 04/29/17 13:45 Dose: 50 mg Diphtheria/Tetanus/Acell Pertussis (Adacel) 0.5 ml IM .ONCE ONE Stop: 04/29/17 09:50 Docusate Sodium (Colace) 100 mg PO BID PRN PRN Reason: Constipation Enalaprilat (Vasotec Iv) 1.25 mg IVPUSH ONETIME ONE Stop: 04/28/17 20:08 Last Admin: 04/28/17 20:16 Dose: 1.25 mg Enoxaparin Sodium (Lovenox) 30 mg SUBCUT DAILY [facility] Last Admin: 05/01/17 09:20 Dose: 30 mg Fluoxetine HCl (Prozac) 20 mg PO BEDTIME [facility] Fluoxetine HCl (Prozac) 10 mg PO BEDTIME [facility] Last Admin: 05/02/17 21:54 Dose: 10 mg Hydrochlorothiazide (Hydrochlorothiazide) 25 mg PO BIDDIURETIC [facility] Last Admin: 04/29/17 16:05 Dose: Not Given Hydrochlorothiazide (Hydrochlorothiazide) 25 mg PO BIDDIURETIC [facility] Sodium Chloride (Normal Saline) 1,000 mls @ 100 mls/hr IV ONETIME ONE Stop: 04/29/17 02:09 Last Admin: 04/28/17 16:31 Dose: 100 mls/hr Magnesium Sulfate 2 gm/ Premix 50 mls @ 25 mls/hr IV ONETIME ONE Stop: 04/29/17 01:28 Last Admin: 04/29/17 00:02 Dose: 25 mls/hr Magnesium Sulfate 2 gm/ Premix 50 mls @ 50 mls/hr IV ONETIME ONE Stop: 05/01/17 15:44 Last Admin: 05/01/17 17:30 Dose: 50 mls/hr Ketorolac Tromethamine (Toradol) 15 mg IVPUSH ONETIME ONE Stop: 04/28/17 18:07 Last Admin: 04/28/17 18:21 Dose: 15 mg Lorazepam (Ativan) 1.5 mg IVPUSH ONETIME ONE Stop: 04/29/17 13:25 Last Admin: 04/29/17 13:30 Dose: 1.5 mg Meclizine HCl (Antivert) 25 mg PO ONETIME ONE Stop: 04/28/17 18:07 Last Admin: 04/28/17 18:24 Dose: 25 mg Meclizine HCl (Antivert) 25 mg PO Q6H PRN PRN Reason: Dizziness Miscellaneous Information (Remove Patch) 1 ea TRDERM ONETIME ONE Stop: 05/01/17 21:01 Last Admin: 05/01/17 20:43 Dose: 1 ea Modafinil (Provigil) 100 mg PO ONETIME ONE Stop: 04/30/17 15:01 Last Admin: 04/30/17 18:40 Dose: Not Given Modafinil (Provigil) 100 mg PO NOW STA Stop: 04/30/17 17:53 Last Admin: 04/30/17 18:40 Dose: 100 mg Modafinil (Provigil) 100 mg PO DAILY [facility] Last Admin: 05/03/17 08:44 Dose: 100 mg Morphine Sulfate (Morphine) 1 mg IVPUSH Q4H PRN PRN Reason: Other Stop: 04/29/17 23:18 Nicotine (Habitrol) 21 mg TRDERM ONETIME ONE Stop: 04/28/17 19:56 Last Admin: 04/28/17 20:14 Dose: 21 mg Ondansetron HCl (Zofran) 4 mg IVPUSH ONETIME ONE Stop: 04/28/17 18:07 Last Admin: 04/28/17 18:17 Dose: 4 mg Polyethylene Glycol (Miralax) 17 gm PO DAILY PRN PRN Reason: Constipation Scopolamine (Transderm-Scop) 1.5 mg TOP ONETIME ONE Stop: 04/28/17 21:01 Last Admin: 04/28/17 22:21 Dose: 1.5 mg Senna/Docusate Sodium (Senna Plus) 1 tab PO BID PRN PRN Reason: Constipation Temazepam (Restoril) 7.5 mg PO BEDTIME PRN PRN Reason: Sleep - Exam Quality Assessment: DVT Prophylaxis General: Alert, Oriented, Cooperative HEENT: Pupils Equal, Pupils Reactive, Mucous Membr. Moist/[place] Neck: Supple, Trachea Midline, No JVD Lungs: Clear to Auscultation, Normal Respiratory Effort Cardiovascular: Regular Rate, Regular Rhythm GI/Abdominal Exam: Normal Bowel Sounds, Non-Tender, No Distention, No Abnormal Bruit (Female) Exam: Deferred Back Exam: Normal Inspection Extremities: Normal Inspection, No Pedal Edema, Limited Range of Motion, Other ( Unable to move left extremity. 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 Good strength on right leg ) Peripheral Pulses: 2+: Radial (L), Radial (R), Posterior Tibial (L), Posterior Tibial (R), Dorsalis Pedis (L), Dorsalis Pedis (R) Skin: Warm, Dry, Intact, Ecchymosis Wound/Incisions: Dressing Dry and Intact (left elbow ), No Drainage Neurological: Strength Equal Bilateral. No: Normal Gait, Sensation Intact ( Absent in left leg ) Psy/Mental Status: Alert (somewhat sleepy ), Depressed - Problem List & Annotations (1) Stroke SNOMED Code(s): 449728733 Code(s): I63.9 - CEREBRAL INFARCTION, UNSPECIFIED Status: Acute Priority : High Current Visit: Yes Qualifiers: CVA mechanism: unspecified Qualified Code(s): I63.9 - Cerebral infarction, unspecified (2) Pavel-neglect of left side SNOMED Code(s): 832662415 Code(s): R41.4 - NEUROLOGIC NEGLECT SYNDROME Status: Acute Priority: High Current Visit: Yes (3) Weakness SNOMED Code(s): 12166180 Code(s): R53.1 - WEAKNESS Status: Acute Priority: High Current Visit: Yes (4) Abdominal pain SNOMED Code(s): 74609217 Code(s): R10.9 - UNSPECIFIED ABDOMINAL PAIN Status: Acute Priority: Medium Current Visit: No - Problem List Review Problem List Initiated/Reviewed/Updated: Yes - My Orders Last 24 Hours: My Active Orders 05/04/17 11:15 Modafinil [Provigil] 100 mg PO DAILY 05/05/17 06:35 BASIC METABOLIC PANEL,BMP [CHEM] DAILY MAGNESIUM [CHEM] DAILY 05/05/17 06:45 CBC WITH AUTO DIFF [HEME] DAILY - Assessment Assessment:: In to visit with Abbey today. She is lying in bed and alert although somewhat sleepy. She responds appropriately to questions. She reports that she is unable to walk. She is alone in the room, although her son and sister are coming to visit. Left elbow wound is wrapped and dressing is intact. Overall she is medically stable. Provigil was stopped yesterday and she has become more sleepy and depressed today. Will restart provigil and disharge her on. She will remain here pending rehabilitation placement. Possible discharge tomorrow or . - Plan Plan:: Assessment/Plan: Acute: Stroke - Neglect on left side - Left arm weakness and left foot drop - CT scan in ED was negative - MRI confirms acute irreversible infarct within occipital lobe and posterior parietal lobe - Swallow study done - will continue to monitor. - She is now on thin liquids with National Dysphagia Level 1 diet -This is a regression from Level 3 yesterday. 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 Will re-start provigil today and discharge with short supply. High Fall Risk - She gets up on her own - Fall precautions in place Resolved: Hypomagnesemia - Mg 1.7 - Will replete - Pharmacy to replete and monitor subsequent levels Dizziness - No associated nasal/throat or hearing complaints - More of dys-equilibrium - No room spinning - Dizziness resolved as soon as she got to the floor - No slurred speech or facial droop - Head CT scan: Nothing acute is identified - R/o Stroke: No MRI/MRA services at night - She is still nauseous - She smokes but does not drink ETOH - She denies illicit drug use or Rx drug abuse - Scopolamine patch x1 and Benadryl 50 mg IVP x1 - PRN Meclizine Malignant HTN, Resolved - Stress vs Nicotine Withdrawal - She carries no hx/o HTN - She had SBPs in the 200s per ED notes - She received initial treatment in ED - Continue PRN anti-hypertensive meds S/p Fall - No obvious trauma - Head CT scan shows no acute brain bleed - 1:1 care Plan: She clinically stable- somewhat alert and awake Continue current treatment Routine AM Labs Aspiration/Fall Precautions Continue PT/OT/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 LOS > 96 hrs pending rehab placement
[2017-05-04] MEDS ORDERED: Sodium Chloride 0.9% 1,000 ML IV SCH (13:15)
[2017-05-04] MEDS: Modafinil 200 MG Tab PO SCH (13:53)
[2017-05-04] MEDS: Ondansetron 4 MG/2 ML SDV IV PRN (15:21)
[2017-05-04] MEDS: Simvastatin 40 MG Tab PO SCH (21:20)
[2017-05-04] MEDS: Acetaminophen/HYDROcodone 325-5 MG Tab PO PRN (21:26)
[2017-05-05 07:43] VITALS: BP 147/73
[2017-05-05] MEDS: Nicotine 21 MG/24 Hr Patch TRDERM SCH (08:21)
[2017-05-05] MEDS: Baclofen 10 MG Tab PO SCH (08:21)
[2017-05-05] MEDS: Famotidine 20 MG/2 ML SDV IVPUSH SCH (08:21)
[2017-05-05] MEDS: Enoxaparin 40 MG/0.4 ML Syringe SUBCUT SCH (08:21)
[2017-05-05] MEDS: FLUoxetine 20 MG Cap PO SCH (08:22)
[2017-05-05] MEDS: Modafinil 200 MG Tab PO SCH (08:22)
[2017-05-05] MEDS ORDERED: Diphtheria,Pertussis(Acell),Tetanus Vaccine 0.5 ML SDV IM ONE (09:45)
== END 2017-05-05 10:06 | DRG 149 ==
LOC: JD.ED 15:50 → JD.MS 20:01 → UNDOADMIN 20:01 → JD.MS 20:30
PROVIDERS: ADMIT Internal Medicine; ATTEND Internal Medicine
DX: R42 Dizziness and giddiness (principal); I63.9 Cerebral infarction, unspecified; R41.4 Neurologic neglect syndrome; E46 Unspecified protein-calorie malnutrition; R10.9 Unspecified abdominal pain; R53.1 Weakness; R11.0 Nausea; R51 Headache; I10 Essential (primary) hypertension; E83.42 Hypomagnesemia; J44.9 Chronic obstructive pulmonary disease, unspecified; F17.210 Nicotine dependence, cigarettes, uncomplicated; E78.5 Hyperlipidemia, unspecified; W06.XXXA Fall from bed, initial encounter; Y92.239 Unspecified place in hospital as the place of occurrence of the external cause; F32.89 Other specified depressive episodes; Z91.81 History of falling
CPT/HCPCS: 36415; 70450; 71010; 80053; 80306; 81001; 83735; 84443; 84484; 85025; 85610; 85730; 93005; 96361; 96374; 96375; 99285; A9270; G0480; J1885; J2405; J7040; J7050; 70551; 70551-26; 80048; 80061; 90715; 92526-GN; 92610-GN; 93306; 93880; 93880-26; 94060; 94664; 94761; 94762; 97110-GP; 97112-GP; 97140-GO; 97163-GP; 97167-GO; 97530-GO; 97530-GP; J0360; J1200; J1650; J2060; J2765; J3475; J3490